=== PATIENT | male | born 1955 | race African-American/Black ===

== ENCOUNTER 2024-01-01 00:59 | Inpatient (IN) | payer MEDICARE, MEDICAID ==
[2024-01-01] VITALS (12 sets, daily range): BP systolic 110–154; BP diastolic 48–81; PULSE 63–88; RESP 16–29; TEMP 36.50292–37.0296; O2SAT 94–98
[~2024-01-01] VITALS: Ht 195.6 cm; Wt 116.6 kg
[2024-01-01] MEDS: IPRATROPIUM/ALBUTEROL 0.5-3(2.5)MG/3ML NEB HHN SCH (00:29)
[~2024-01-01 00:59] MED LIST: ALLO100T PO; AMLO5TAB4 PO; ASPI-1497 PO; ATOR40TA70 PO; CHOL100044 PO; CILO100T3 PO; DICL100G16 TP; FLUT; LISI20TA31 PO; LORA10TA7 PO; METF-414 PO; OLOP2.5D12 EACHEYE; OMEP20CA14 PO
[2024-01-01 01:20] LABS: BG BASE EXCESS -12.7 mmol/L (-2.0-3.0); BG DEOXYHEMOGLOBIN 0.4 % (0.0-5.0); BG FRACTION INSPIRED OXYGEN 100; BG HCO3 ACT 14.5 mmol/L (21.0-28.0); BG METHEMOGLOBIN 0.3 % (0.5-1.5); BG OXYGEN SATURATION 99.6 % (94.0-98.0); BG OXYHEMOGLOBIN 95.3 % (94.0-98.0); BG PCO2 37.6 mmHg (35.0-48.0); BG PH 7.203 (7.350-7.450); BG PO2 231.7 mmHg (83.0-108.0); BG SAMPLE SITE RIGHT RADIAL; BG TOTAL HEMOGLOBIN 13.3 g/dL (13.5-17.5); BG VENT MODE MASK - BIPAP
[2024-01-01] MEDS: METHYLPREDNISOLONE SOD SUCC 125MG/2ML (ACT-O-VIAL) IV STA (01:28)
[2024-01-01] MEDS: IPRATROPIUM BROMIDE (0.02%) 0.5MG/2.5ML NEB HHN STA (01:34)
[2024-01-01] MEDS: ALBUTEROL (0.083%) 2.5MG/3ML NEB HHN STA (01:34)
[2024-01-01 01:45] LABS: BASOPHILS % 1.1 % (0.0-2.0); EOSINOPHILS % 2.2 % (0.0-5.0); HEMATOCRIT. 39.3 % (42.0-52.0); HEMOGLOBIN. 12.7 g/dL (14.0-18.0); LYMPHOCYTES % 30.4 % (20.0-50.0); MEAN CORPUSCULAR HEMOGLOBIN 31.5 pg (28.0-32.0); MEAN CORPUSCULAR HGB CONC 32.3 g/dL (31.0-37.0); MEAN CORPUSCULAR VOLUME 97.6 fL (80.0-94.0); MEAN PLATELET VOLUME 9.2 fl (7.4-10.4); MONOCYTES % 2.1 % (2.0-8.0); NEUTROPHILS % 64.2 % (40.0-76.0); PLATELET 290 x1000/uL (130-400); RED BLOOD CELL COUNT 4.03 mill/uL (4.7-6.1); WHITE BLOOD COUNT 11.6 x1000/uL (4.5-11.0)
[2024-01-01 01:49] LABS: CHLORIDE 107 mEq/L (98-107); POTASSIUM 3.4 mEq/L (3.5-5.1); SODIUM 139 mEq/L (136-145)
[2024-01-01 01:50] LABS: CALCIUM 9.1 mg/dL (8.7-10.4); CARBON DIOXIDE 19 mEq/L (21-32)
[2024-01-01 01:55] LABS: CREATININE 1.7 mg/dL (0.6-1.3); GLUCOSE 233 mg/dL (70-105); UREA NITROGEN BLOOD 13 mg/dL (9-23)
[2024-01-01 02:15] LABS: LACTIC ACID 6.5 mmol/L (0.4-2.0); TROPONIN I HIGH SENSITIVITY 679 ng/L (3.0-53)
[2024-01-01 02:16] LABS: ETHANOL BLOOD < 10 mg/dL (<10)
[2024-01-01 02:51] LABS: CLARITY URINE CLEAR (CLEAR); COLOR URINE YELLOW (YELLOW); GLUCOSE URINE 1+ (NEGATIVE); KETONES URINE NEGATIVE (NEGATIVE); LEUKOCYTE ESTERASE URINE TRACE (NEGATIVE); NITRITE URINE NEGATIVE (NEGATIVE); OCCULT BLOOD URINE 2+ (NEGATIVE); PROTEIN URINE 2+ (NEGATIVE); SPECIFIC GRAVITY URINE 1.013 (1.005-1.030); UROBILINOGEN URINE 0.2 E.U./dL (0.2-1.0)
[2024-01-01 02:52] LABS: PARTIAL THROMBOPLASTIN TIME 25.3 sec (23.4-31.0); PROTHROMBIN TIME 10.9 sec (9.6-11.0)
[2024-01-01 03:10] LABS: *AMPHETAMINES SCREEN URINE NEGATIVE (NEGATIVE)
[2024-01-01 03:11] LABS: *BARBITURATES SCREEN URINE NEGATIVE (NEGATIVE); *BENZODIAZEPINES SCREEN URINE NEGATIVE (NEGATIVE); *COCAINE SCREEN URINE NEGATIVE (NEGATIVE); CANNABINOID URINE SCREEN PRESUMPTIVE POSITIVE (NEGATIVE); ECSTASY MDMA SCREEN URINE NEGATIVE (NEGATIVE); METHADONE URINE SCREEN NEGATIVE (NEGATIVE); OPIATES URINE SCREEN NEGATIVE (NEGATIVE); PHENCYCLIDINE URINE SCREEN NEGATIVE (NEGATIVE)
[2024-01-01] MEDS: SODIUM BICARBONATE 8.4% 50MEQ/50ML SYR IV NR (03:26)
[2024-01-01] MEDS: ENOXAPARIN 100MG/ML SYR SUBCUT NR (03:26)
[2024-01-01] MEDS: ASPIRIN 325MG EC TABLET PO NR (03:26)
[2024-01-01 04:47] LABS: BACTERIA URINE 1+; SQUAMOUS EPITHELIAL CELL URINE 1+ /lpf (RARE/1+); TRICHOMONAS URINE 1+; WBC URINE TNTC /hpf (0-2)
[2024-01-01] MEDS: FUROSEMIDE 40MG/4ML VIAL IVP NR ×2 (13:32→20:36)
[2024-01-01 13:46] LABS: HEPATITIS B SURFACE ANTIGEN NEGATIVE (Negative)
[2024-01-01] MEDS ORDERED: CLONIDINE 0.1MG TABLET PO PRN (14:00)
[2024-01-01 14:08] LABS: HEPATITIS C AB NON REACTIVE (Neg) (Negative)
[2024-01-01] MEDS: PANTOPRAZOLE SODIUM 40 MG/VIAL IV SCH (15:12)
[2024-01-01] MEDS: ASPIRIN 81MG EC TABLET PO SCH (15:12)
[2024-01-01] MEDS: ALLOPURINOL 100 MG TABLET PO SCH (15:13)
[2024-01-01] MEDS: LISINOPRIL 20MG TABLET PO SCH (15:13)
[2024-01-01] MEDS: CHOLECALCIFEROL (D3) 1000 UNIT TABLET PO SCH (15:13)
[2024-01-01] MEDS: AMLODIPINE 5MG TABLET PO SCH (15:14)
[2024-01-01] MEDS: ENOXAPARIN 40MG/0.4ML SYR SUBCUT SCH (15:15)
[2024-01-01] MEDS: DOXYCYCLINE HYCLATE 100MG CAPSULE PO SCH (15:19)
[2024-01-01 18:05] LABS: TROPONIN I HIGH SENSITIVITY 640 ng/L (3.0-53)
[2024-01-01] MEDS: CILOSTAZOL 100MG TABLET PO SCH (20:35)
[2024-01-01] MEDS: ATORVASTATIN CALCIUM 40MG TABLET PO SCH (20:36)
[2024-01-01] MEDS ORDERED: ZOLPIDEM TARTRATE 5MG TABLET PO PRN (21:00)
[2024-01-01] MEDS: CEFTRIAXONE 1GM/50ML 50 ML IV SCH (21:20)
[2024-01-01 21:25] LABS: CREATINE KINASE MB FRACTION 7.1 ng/mL (0.5-3.6)
[2024-01-02] VITALS (31 sets, daily range): BP systolic 105–144; BP diastolic 48–87; PULSE 38–80; RESP 9–21; TEMP 36.61404–36.83628; O2SAT 89–99
[2024-01-02 06:51] LABS: BASOPHILS % 1.2 % (0.0-2.0); EOSINOPHILS % 0.6 % (0.0-5.0); HEMATOCRIT. 30.2 % (42.0-52.0); HEMOGLOBIN. 10.1 g/dL (14.0-18.0); LYMPHOCYTES % 22.6 % (20.0-50.0); MEAN CORPUSCULAR HGB CONC 33.6 g/dL (31.0-37.0); MEAN CORPUSCULAR VOLUME 98.3 fL (80.0-94.0); MEAN PLATELET VOLUME 9.6 fl (7.4-10.4); MONOCYTES % 6.1 % (2.0-8.0); NEUTROPHILS % 69.5 % (40.0-76.0); PLATELET 229 x1000/uL (130-400); RED BLOOD CELL COUNT 3.07 mill/uL (4.7-6.1); WHITE BLOOD COUNT 9.9 x1000/uL (4.5-11.0)
[2024-01-02 07:22] LABS: CHLORIDE 106 mEq/L (98-107); POTASSIUM 3.6 mEq/L (3.5-5.1); SODIUM 139 mEq/L (136-145)
[2024-01-02 07:23] LABS: CALCIUM 8.5 mg/dL (8.7-10.4); CARBON DIOXIDE 26 mEq/L (21-32)
[2024-01-02 07:24] LABS: CREATINE KINASE MB FRACTION 6.2 ng/mL (0.5-3.6)
[2024-01-02 07:27] LABS: TROPONIN I HIGH SENSITIVITY 500 ng/L (3.0-53)
[2024-01-02 07:28] LABS: CREATININE 1.3 mg/dL (0.6-1.3); GLUCOSE 103 mg/dL (70-105); UREA NITROGEN BLOOD 23 mg/dL (9-23)
[2024-01-02 07:30] LABS: CREATINE KINASE 120 IU/L (46-171)
[2024-01-02] MEDS: LORATADINE 10MG TABLET PO SCH (08:16)
[2024-01-02] MEDS ORDERED: IODIXANOL 320MG/ML 100 ML BOTTLE IV ONE ×2 (08:49→13:38)
[2024-01-02] MEDS ORDERED: HEPARIN 1000 UNITS/ML 10ML ONE ×2 (08:49→13:38)
[2024-01-02] MEDS ORDERED: MIDAZOLAM HCL 2 MG/2 ML VIAL ONE ×2 (08:51→13:38)
[2024-01-02] MEDS ORDERED: FENTANYL CITRATE/PF 50MCG/ML 2ML VIAL ONE ×2 (08:51→13:38)
[2024-01-02] MEDS ORDERED: LIDOCAINE HCL 1% 10 MG/ML 10ML VIAL ONE ×2 (08:51→13:37)
[2024-01-02] MEDS ORDERED: VERAPAMIL HCL 2.5 MG/1 ML 2ML VIAL IV ONE ×2 (08:51→13:37)
[2024-01-02] MEDS: KCL 20MEQ/100ML PREMIX 100 ML IV SCH (15:43)
[2024-01-02] MEDS ORDERED: DEXTROSE 50% WATER 50ML SYRINGE IV PRN (15:45)
[2024-01-02] MEDS: BLOOD SUGAR DIAGNOSTIC STRIP TEST SCH (16:46)
[2024-01-02] MEDS: MAGNESIUM 2 G PREMIX 50 ML IV NR ×2 (17:10→20:23)
[2024-01-02] MEDS: INSULIN LISPRO 100 UNITS/ML SUBCUT SCH (17:35)
[2024-01-03] VITALS (55 sets, daily range): BP systolic 87–145; BP diastolic 35–107; PULSE 54–87; RESP 0–26; TEMP 36.6696–37.11408; O2SAT 90–100
[2024-01-03 06:57] LABS: BASOPHILS % 0.8 % (0.0-2.0); EOSINOPHILS % 1.5 % (0.0-5.0); HEMATOCRIT. 31.6 % (42.0-52.0); HEMOGLOBIN. 10.7 g/dL (14.0-18.0); LYMPHOCYTES % 16.7 % (20.0-50.0); MEAN CORPUSCULAR HEMOGLOBIN 32.5 pg (28.0-32.0); MEAN CORPUSCULAR HGB CONC 33.8 g/dL (31.0-37.0); MEAN CORPUSCULAR VOLUME 96.1 fL (80.0-94.0); MEAN PLATELET VOLUME 9.1 fl (7.4-10.4); MONOCYTES % 5.4 % (2.0-8.0); NEUTROPHILS % 75.6 % (40.0-76.0); PLATELET 230 x1000/uL (130-400); RED BLOOD CELL COUNT 3.29 mill/uL (4.7-6.1); RED CELL DISTRIBUTION WIDTH 15.9 % (11.6-14.6)
[2024-01-03 07:13] LABS: CHLORIDE 107 mEq/L (98-107); POTASSIUM 3.9 mEq/L (3.5-5.1); SODIUM 139 mEq/L (136-145)
[2024-01-03 07:14] LABS: CALCIUM 8.6 mg/dL (8.7-10.4); CARBON DIOXIDE 28 mEq/L (21-32)
[2024-01-03 07:19] LABS: CREATININE 1.2 mg/dL (0.6-1.3); GLUCOSE 105 mg/dL (70-105); UREA NITROGEN BLOOD 19 mg/dL (9-23)
[2024-01-03] MEDS ORDERED: CHLORHEXIDINE GLUCONATE 4% EXTERNAL USE TOP SCH (09:00)
[2024-01-03] MEDS ORDERED: FUROSEMIDE 40MG/4ML VIAL IVP NR (10:45)
[2024-01-03] MEDS: MAGNESIUM 2 G PREMIX 50 ML IV NR ×2 (11:09→17:11)
[2024-01-03] MEDS: POTASSIUM CHLORIDE 20MEQ/PACKET PO NR (11:09)
[2024-01-03] MEDS: FUROSEMIDE 20MG/2ML VIAL IVP NR (11:09)
[2024-01-03] MEDS: METRONIDAZOLE 500MG TABLET PO NR (13:46)
[2024-01-03 14:45] LABS: BG BASE EXCESS 0.8 mmol/L (-2.0-3.0); BG CARBOXYHEMOGLOBIN 0.4 % (0.5-1.5); BG DEOXYHEMOGLOBIN 5.4 % (0.0-5.0); BG FRACTION INSPIRED OXYGEN 21; BG METHEMOGLOBIN 0.3 % (0.5-1.5); BG OXYGEN SATURATION 94.6 % (94.0-98.0); BG OXYHEMOGLOBIN 93.9 % (94.0-98.0); BG PCO2 33.3 mmHg (35.0-48.0); BG PH 7.475 (7.350-7.450); BG PO2 71.4 mmHg (83.0-108.0); BG SAMPLE SITE LEFT RADIAL; BG TOTAL HEMOGLOBIN 11.6 g/dL (13.5-17.5); BG VENT MODE ROOM AIR
[2024-01-03 16:17] LABS: CHLORIDE 106 mEq/L (98-107); POTASSIUM 4.2 mEq/L (3.5-5.1)
[2024-01-03 16:18] LABS: CARBON DIOXIDE 25 mEq/L (21-32); SODIUM 138 mEq/L (136-145)
[2024-01-03 16:19] LABS: CALCIUM 8.7 mg/dL (8.7-10.4)
[2024-01-03 16:23] LABS: CREATININE 1.3 mg/dL (0.6-1.3); GLUCOSE 121 mg/dL (70-105)
[2024-01-03 16:24] LABS: UREA NITROGEN BLOOD 18 mg/dL (9-23)
[2024-01-03 16:31] LABS: TROPONIN I HIGH SENSITIVITY 214 ng/L (3.0-53)
[2024-01-04] VITALS (56 sets, daily range): BP systolic 78–163; BP diastolic 41–86; PULSE 58–90; RESP 0–25; TEMP 36.89184–37.2252; O2SAT 92–100
[2024-01-04 06:17] LABS: EOSINOPHILS % 1.5 % (0.0-5.0); HEMATOCRIT. 32.3 % (42.0-52.0); HEMOGLOBIN. 10.7 g/dL (14.0-18.0); LYMPHOCYTES % 21.5 % (20.0-50.0); MEAN CORPUSCULAR HEMOGLOBIN 32.7 pg (28.0-32.0); MEAN CORPUSCULAR HGB CONC 33.2 g/dL (31.0-37.0); MEAN CORPUSCULAR VOLUME 98.3 fL (80.0-94.0); MEAN PLATELET VOLUME 8.9 fl (7.4-10.4); MONOCYTES % 5.8 % (2.0-8.0); NEUTROPHILS % 70.2 % (40.0-76.0); PLATELET 250 x1000/uL (130-400); RED BLOOD CELL COUNT 3.29 mill/uL (4.7-6.1); WHITE BLOOD COUNT 8.7 x1000/uL (4.5-11.0)
[2024-01-04 06:32] LABS: CHLORIDE 104 mEq/L (98-107); SODIUM 137 mEq/L (136-145)
[2024-01-04 06:33] LABS: CALCIUM 8.8 mg/dL (8.7-10.4); CARBON DIOXIDE 27 mEq/L (21-32)
[2024-01-04 06:38] LABS: CREATININE 1.4 mg/dL (0.6-1.3); GLUCOSE 124 mg/dL (70-105); UREA NITROGEN BLOOD 21 mg/dL (9-23)
[2024-01-04 08:45] LABS: CLARITY URINE CLEAR (CLEAR); COLOR URINE YELLOW (YELLOW); GLUCOSE URINE NEGATIVE (NEGATIVE); KETONES URINE NEGATIVE (NEGATIVE); LEUKOCYTE ESTERASE URINE 1+ (NEGATIVE); NITRITE URINE NEGATIVE (NEGATIVE); OCCULT BLOOD URINE NEGATIVE (NEGATIVE); PH URINE 6.5 (4.5-8.0); PROTEIN URINE NEGATIVE (NEGATIVE); SPECIFIC GRAVITY URINE 1.016 (1.005-1.030); UROBILINOGEN URINE 0.2 E.U./dL (0.2-1.0)
[2024-01-04 09:19] LABS: SQUAMOUS EPITHELIAL CELL URINE 1+ /lpf (RARE/1+)
[2024-01-04 09:20] LABS: BACTERIA URINE TRACE; RBC URINE NONE SEEN /hpf (0-2)
[2024-01-04] MEDS: SODIUM CHLORIDE 0.9% 250 ML IV ONE (10:00)
[2024-01-05] VITALS (81 sets, daily range): BP systolic 83–150; BP diastolic 40–97; PULSE 38–97; RESP 7–26; TEMP 36.78072–37.05852; O2SAT 92–100
[2024-01-05 09:58] LABS: CHLORIDE 104 mEq/L (98-107); POTASSIUM 4.5 mEq/L (3.5-5.1); SODIUM 137 mEq/L (136-145)
[2024-01-05 09:59] LABS: BASOPHILS % 0.8 % (0.0-2.0); EOSINOPHILS % 2.7 % (0.0-5.0); HEMATOCRIT. 33.1 % (42.0-52.0); HEMOGLOBIN. 11.1 g/dL (14.0-18.0); LYMPHOCYTES % 20.6 % (20.0-50.0); MEAN CORPUSCULAR HEMOGLOBIN 32.7 pg (28.0-32.0); MEAN CORPUSCULAR HGB CONC 33.7 g/dL (31.0-37.0); MEAN CORPUSCULAR VOLUME 97.2 fL (80.0-94.0); MEAN PLATELET VOLUME 9.2 fl (7.4-10.4); MONOCYTES % 6.5 % (2.0-8.0); NEUTROPHILS % 69.4 % (40.0-76.0); PLATELET 259 x1000/uL (130-400); RED BLOOD CELL COUNT 3.41 mill/uL (4.7-6.1); WHITE BLOOD COUNT 6.6 x1000/uL (4.5-11.0)
[2024-01-05 09:59] LABS: CALCIUM 8.9 mg/dL (8.7-10.4); CARBON DIOXIDE 29 mEq/L (21-32)
[2024-01-05 10:04] LABS: CREATININE 1.3 mg/dL (0.6-1.3); GLUCOSE 108 mg/dL (70-105); UREA NITROGEN BLOOD 17 mg/dL (9-23)
[2024-01-05] MEDS: MAGNESIUM 2 G PREMIX 50 ML IV NR (10:42)
[2024-01-05] MEDS: ATROPINE SULFATE 1MG/10ML SYR IV PRN (12:35)
[2024-01-05] MEDS ORDERED: POLYVINYL ALCOHOL OPHTH DROPS 15ML BOTHEYE PRN (17:00)
[2024-01-06] VITALS (56 sets, daily range): BP systolic 95–156; BP diastolic 41–85; PULSE 42–75; RESP 10–22; TEMP 36.3918–36.83628; O2SAT 92–100
[2024-01-06 06:34] LABS: CHLORIDE 106 mEq/L (98-107); POTASSIUM 5.4 mEq/L (3.5-5.1); SODIUM 140 mEq/L (136-145)
[2024-01-06 06:35] LABS: CALCIUM 9.5 mg/dL (8.7-10.4); CARBON DIOXIDE 29 mEq/L (21-32)
[2024-01-06 06:40] LABS: CREATININE 1.4 mg/dL (0.6-1.3); GLUCOSE 112 mg/dL (70-105); UREA NITROGEN BLOOD 23 mg/dL (9-23)
[2024-01-06 08:07] LABS: EOSINOPHILS % 3.9 % (0.0-5.0); HEMATOCRIT. 33.5 % (42.0-52.0); HEMOGLOBIN. 11.2 g/dL (14.0-18.0); LYMPHOCYTES % 23.3 % (20.0-50.0); MEAN CORPUSCULAR HEMOGLOBIN 33.1 pg (28.0-32.0); MEAN CORPUSCULAR HGB CONC 33.6 g/dL (31.0-37.0); MEAN CORPUSCULAR VOLUME 98.4 fL (80.0-94.0); MEAN PLATELET VOLUME 9.4 fl (7.4-10.4); NEUTROPHILS % 64.8 % (40.0-76.0); PLATELET 256 x1000/uL (130-400); RED CELL DISTRIBUTION WIDTH 16.1 % (11.6-14.6); WHITE BLOOD COUNT 7.5 x1000/uL (4.5-11.0)
[2024-01-06 10:44] LABS: CARBON DIOXIDE 29 mEq/L (21-32); CHLORIDE 102 mEq/L (98-107); POTASSIUM 4.6 mEq/L (3.5-5.1); SODIUM 136 mEq/L (136-145)
[2024-01-06 10:45] LABS: CALCIUM 9.2 mg/dL (8.7-10.4)
[2024-01-06 10:50] LABS: CREATININE 1.3 mg/dL (0.6-1.3); GLUCOSE 105 mg/dL (70-105); UREA NITROGEN BLOOD 20 mg/dL (9-23)
[2024-01-06] MEDS: MAGNESIUM 2 G PREMIX 50 ML IV SCH (11:01)
[2024-01-06] MEDS: FUROSEMIDE 20MG/2ML VIAL IVP SCH (11:01)
[2024-01-06] MEDS: SODIUM CHLORIDE 0.9% 250 ML IV NR (11:34)
[2024-01-06] MEDS: CHLORHEXIDINE GLUCONATE 4% EXTERNAL USE TOP SCH (21:20)
[2024-01-06 22:28] LABS: CHLORIDE 102 mEq/L (98-107); POTASSIUM 4.6 mEq/L (3.5-5.1); SODIUM 135 mEq/L (136-145)
[2024-01-06 22:29] LABS: CARBON DIOXIDE 27 mEq/L (21-32)
[2024-01-06 22:30] LABS: CALCIUM 8.7 mg/dL (8.7-10.4)
[2024-01-06 22:35] LABS: CREATININE 1.4 mg/dL (0.6-1.3); GLUCOSE 117 mg/dL (70-105); UREA NITROGEN BLOOD 22 mg/dL (9-23)
[2024-01-06] MEDS: DEXT 5%/0.45% NACL 1000ML 1,000 ML IV SCH (23:02)
[2024-01-07] VITALS (56 sets, daily range): BP systolic 86–154; BP diastolic 38–80; PULSE 35–108; RESP 7–24; TEMP 35.94732–37.05852; O2SAT 89–100
[2024-01-07] MEDS: CEFAZOLIN 2GM/100ML 100 ML IV NR (04:47)
[2024-01-07] MEDS ORDERED: PAPAVERINE HCL 180MG in SODIUM CHLORIDE 0.9% 24ML IV PRN (05:00)
[2024-01-07] MEDS ORDERED: EPINEPHRINE 5 MG in DEXT 5% WATER 250 ML IV PRN (05:00)
[2024-01-07] MEDS ORDERED: NICARDIPINE 40MG/200ML PREMIX 200 ML IV PRN (05:00)
[2024-01-07] MEDS ORDERED: DOPAMINE 400MG/250ML PREMIX 250 ML IV PRN ×3 (05:00→22:30)
[2024-01-07] MEDS ORDERED: AMINOCAPROIC ACID 5,000 MG in SODIUM CHLORIDE 0.9% 250 ML IV PRN (05:00)
[2024-01-07] MEDS ORDERED: DEL NIDO CARDIOPLEGIA 1,000 ML (PREMIX) IV NR ×2 (05:00)
[2024-01-07] MEDS ORDERED: NOREPINEPHRINE 8MG/250ML PMX 250 ML IV PRN ×2 (05:00→22:30)
[2024-01-07] MEDS ORDERED: DOBUTAMINE 250 MG/250 ML PREMIX IV PRN (05:00)
[2024-01-07] MEDS ORDERED: LR with VERAPAMIL, NTG, HEPARIN, SODIUM BICARBONATE (Soln) IV SCH ×2 (05:00→08:30)
[2024-01-07] MEDS ORDERED: INSULIN REGULAR 100 U/100 ML PREMIX IV PRN (05:00)
[2024-01-07 05:25] LABS: CHLORIDE 103 mEq/L (98-107); POTASSIUM 4.6 mEq/L (3.5-5.1); SODIUM 136 mEq/L (136-145)
[2024-01-07 05:26] LABS: CALCIUM 9.2 mg/dL (8.7-10.4); CARBON DIOXIDE 28 mEq/L (21-32)
[2024-01-07 05:30] LABS: PARTIAL THROMBOPLASTIN TIME 25.1 sec (23.4-31.0); PROTHROMBIN TIME 10.9 sec (9.6-11.0)
[2024-01-07 05:31] LABS: CREATININE 1.4 mg/dL (0.6-1.3); GLUCOSE 112 mg/dL (70-105)
[2024-01-07] MEDS ORDERED: POLYMYXIN B SULFATE 500000 UNITS/VIAL ONE (05:31)
[2024-01-07 05:32] LABS: UREA NITROGEN BLOOD 22 mg/dL (9-23)
[2024-01-07] MEDS ORDERED: PHENYLEPHRINE 50MG/250ML PMX 250 ML IV ONE (05:32)
[2024-01-07] MEDS ORDERED: THROMBIN (BOVINE) 5000 UNITS/VIAL TOP ONE ×3 (05:32→18:46)
[2024-01-07] MEDS ORDERED: SKIN ADHESIVE 0.7 GM EA TOP ONE (05:32)
[2024-01-07 05:37] LABS: BASOPHILS % 0.9 % (0.0-2.0); EOSINOPHILS % 4.4 % (0.0-5.0); HEMATOCRIT. 33.3 % (42.0-52.0); HEMOGLOBIN. 11.4 g/dL (14.0-18.0); LYMPHOCYTES % 26.4 % (20.0-50.0); MEAN CORPUSCULAR HEMOGLOBIN 33.4 pg (28.0-32.0); MEAN CORPUSCULAR HGB CONC 34.2 g/dL (31.0-37.0); MEAN CORPUSCULAR VOLUME 97.8 fL (80.0-94.0); MEAN PLATELET VOLUME 8.9 fl (7.4-10.4); MONOCYTES % 7.1 % (2.0-8.0); NEUTROPHILS % 61.2 % (40.0-76.0); PLATELET 258 x1000/uL (130-400); RED BLOOD CELL COUNT 3.41 mill/uL (4.7-6.1); RED CELL DISTRIBUTION WIDTH 15.7 % (11.6-14.6); WHITE BLOOD COUNT 6.1 x1000/uL (4.5-11.0)
[2024-01-07] MEDS ORDERED: MILRINONE 20MG-DEXT 5% PREMIX 100 ML IV ONE (05:49)
[2024-01-07] MEDS ORDERED: NITROGLYCERIN 50MG PREMIX 250 ML IV ONE (05:49)
[2024-01-07] MEDS ORDERED: SEVOFLURANE 250 ML LIQUID INH ONE (05:49)
[2024-01-07] MEDS ORDERED: HEPARIN 1000 UNITS/ML 10ML ONE ×2 (05:49→13:15)
[2024-01-07] MEDS ORDERED: AMINOCAPROIC ACID 5,000 MG in SODIUM CHLORIDE 0.9% 250 ML IV NR (06:15)
[2024-01-07] MEDS: CHLORHEXIDINE GLUCONATE 4% EXTERNAL USE TOP SCH (09:12)
[2024-01-07] MEDS ORDERED: LIDOCAINE HCL 1% 10 MG/ML 10ML VIAL ONE ×2 (09:12→09:13)
[2024-01-07] MEDS ORDERED: ROCURONIUM BROMIDE 10MG/ML VIAL 5ML IV ONE ×6 (09:14→19:57)
[2024-01-07] MEDS ORDERED: PROPOFOL 200MG/20ML VIAL IV ONE ×2 (09:15→11:40)
[2024-01-07] MEDS ORDERED: EPINEPHRINE 0.1MG/ML (1:10,000) 10ML SYR ONE (09:15)
[2024-01-07] MEDS ORDERED: CALCIUM CHLORIDE 1GM/10ML SYR IV ONE (09:47)
[2024-01-07] MEDS ORDERED: PHENYLEPHRINE HCL 10MG/ML 1ML IV ONE (09:48)
[2024-01-07] MEDS ORDERED: ALBUMIN HUMAN 25GM/100ML (25%) IV ONE ×2 (10:00→16:53)
[2024-01-07] MEDS ORDERED: MIDAZOLAM HCL 2 MG/2 ML VIAL ONE (10:29)
[2024-01-07] MEDS ORDERED: FENTANYL CITRATE/PF 50MCG/ML 5ML VIAL ONE ×2 (10:29→11:11)
[2024-01-07] MEDS ORDERED: FENTANYL CITRATE/PF 50MCG/ML 2ML VIAL ONE ×4 (11:42→18:57)
[2024-01-07] MEDS ORDERED: METOCLOPRAMIDE HCL 10MG/2ML VIAL ONE (12:50)
[2024-01-07] MEDS ORDERED: AMINOCAPROIC ACID 250 MG/ML 20ML VIAL ONE (12:50)
[2024-01-07] MEDS ORDERED: SODIUM BICARBONATE 8.4% 50MEQ/50ML SYR IV ONE (14:48)
[2024-01-07] MEDS ORDERED: PROTAMINE SULFATE 10MG/ML VIAL 25ML IV ONE (16:15)
[2024-01-07] MEDS ORDERED: CEFAZOLIN SODIUM 1000MG/VIAL ONE ×3 (16:22→19:38)
[2024-01-07] MEDS ORDERED: MAGNESIUM 1 G PREMIX 100 ML IV PRN (16:45)
[2024-01-07] MEDS ORDERED: MAGNESIUM SULFATE 3 GM in DEXT 5% WATER 100 ML IV PRN (16:45)
[2024-01-07] MEDS ORDERED: DEXTROSE 50% WATER 50ML SYRINGE IV PRN ×3 (16:45→22:15)
[2024-01-07] MEDS ORDERED: ALBUMIN HUMAN 12.5G/250ML (5%) IV ONE (18:19)
[2024-01-07] MEDS ORDERED: PROPOFOL 10MG/ML 100ML 100 ML IV ONE (18:49)
[2024-01-07] MEDS: BLOOD SUGAR DIAGNOSTIC STRIP TEST SCH ×2 (19:00→22:21)
[2024-01-07] MEDS ORDERED: ONDANSETRON HCL 4MG/2ML INJ ONE (19:03)
[2024-01-07 19:28] LABS: HEMATOCRIT. 23.5 % (42.0-52.0); HEMOGLOBIN. 7.9 g/dL (14.0-18.0); MEAN CORPUSCULAR HEMOGLOBIN 31.4 pg (28.0-32.0); MEAN CORPUSCULAR HGB CONC 33.4 g/dL (31.0-37.0); MEAN CORPUSCULAR VOLUME 94.1 fL (80.0-94.0); MEAN PLATELET VOLUME 8.1 fl (7.4-10.4); PLATELET 163 x1000/uL (130-400); RED CELL DISTRIBUTION WIDTH 15.8 % (11.6-14.6); WHITE BLOOD COUNT 12.4 x1000/uL (4.5-11.0)
[2024-01-07 19:33] LABS: DIFFERENTIAL COMMENT 1
[2024-01-07 19:34] LABS: CHLORIDE 105 mEq/L (98-107); POTASSIUM 5.4 mEq/L (3.5-5.1); SODIUM 140 mEq/L (136-145)
[2024-01-07 19:35] LABS: CALCIUM 8.7 mg/dL (8.7-10.4); CARBON DIOXIDE 27 mEq/L (21-32)
[2024-01-07 19:41] LABS: CREATININE 1.6 mg/dL (0.6-1.3); GLUCOSE 146 mg/dL (70-105); UREA NITROGEN BLOOD 20 mg/dL (9-23)
[2024-01-07 19:42] LABS: ALANINE AMINOTRANSFERASE 15 IU/L (10-49); ALBUMIN 3.7 g/dL (3.2-4.8); ASPARTATE AMINOTRANSFERASE 33 IU/L (<34)
[2024-01-07 19:43] LABS: BILIRUBIN TOTAL 0.8 mg/dL (0.1-1.0); PHOSPHORUS 5.1 mg/dL (2.5-4.9); PROTEIN TOTAL 5.5 g/dL (6.0-8.3)
[2024-01-07 19:44] LABS: INR 1.1; PARTIAL THROMBOPLASTIN TIME 25.1 sec (23.4-31.0)
[2024-01-07 19:46] LABS: PLATELET ESTIMATE NORMAL
[2024-01-07] MEDS: MAGNESIUM 2 G PREMIX 50 ML IV PRN (20:36)
[2024-01-07 20:39] LABS: BG BASE EXCESS 0.6 mmol/L (-2.0-3.0); BG CARBOXYHEMOGLOBIN 0.5 % (0.5-1.5); BG DEOXYHEMOGLOBIN 1.2 % (0.0-5.0); BG FRACTION INSPIRED OXYGEN 100; BG METHEMOGLOBIN 0.1 % (0.5-1.5); BG OXYGEN SATURATION 98.8 % (94.0-98.0); BG OXYHEMOGLOBIN 98.2 % (94.0-98.0); BG PCO2 45.3 mmHg (35.0-48.0); BG PEEP (cmH2O) 0 cmH2O; BG PH 7.377 (7.350-7.450); BG PO2 149.6 mmHg (83.0-108.0); BG SAMPLE SITE RIGHT FEMORAL; BG TOTAL HEMOGLOBIN 11.5 g/dL (13.5-17.5); BG VENT MODE VENT - AC
[2024-01-07] MEDS ORDERED: ONDANSETRON HCL 4MG/2ML INJ IV PRN (20:45)
[2024-01-07] MEDS ORDERED: SODIUM CHLORIDE 0.9% 500 ML IV PRN (21:00)
[2024-01-07 21:56] LABS: BG BASE EXCESS 2.8 mmol/L (-2.0-3.0); BG CARBOXYHEMOGLOBIN 0.1 % (0.5-1.5); BG DEOXYHEMOGLOBIN 5.9 % (0.0-5.0); BG FRACTION INSPIRED OXYGEN 70; BG HCO3 ACT 28.4 mmol/L (21.0-28.0); BG METHEMOGLOBIN 0.1 % (0.5-1.5); BG OXYGEN SATURATION 94.1 % (94.0-98.0); BG OXYHEMOGLOBIN 93.9 % (94.0-98.0); BG PCO2 48.8 mmHg (35.0-48.0); BG PH 7.383 (7.350-7.450); BG PO2 75.5 mmHg (83.0-108.0); BG SAMPLE SITE RIGHT FEMORAL; BG TOTAL HEMOGLOBIN 10.3 g/dL (13.5-17.5); BG VENT MODE VENT - AC
[2024-01-07] MEDS ORDERED: INSULIN REGULAR 100U/100ML PMX 100 ML IV SCH (22:00)
[2024-01-07] MEDS: IPRATROPIUM/ALBUTEROL 0.5-3(2.5)MG/3ML NEB HHN SCH (22:12)
[2024-01-07] MEDS: PROPOFOL 10MG/ML 100ML 100 ML IV PRN (22:21)
[2024-01-07] MEDS: CEFAZOLIN 2GM/100ML 100 ML IV SCH (22:21)
[2024-01-07] MEDS ORDERED: EPINEPHRINE 5 MG in SODIUM CHLORIDE 0.9% 245 ML IV PRN (22:30)
[2024-01-07 23:10] LABS: BG BASE EXCESS 4.3 mmol/L (-2.0-3.0); BG CARBOXYHEMOGLOBIN 0.7 % (0.5-1.5); BG DEOXYHEMOGLOBIN 4.8 % (0.0-5.0); BG FRACTION INSPIRED OXYGEN 50; BG HCO3 ACT 29.6 mmol/L (21.0-28.0); BG METHEMOGLOBIN 0.1 % (0.5-1.5); BG OXYGEN SATURATION 95.2 % (94.0-98.0); BG OXYHEMOGLOBIN 94.4 % (94.0-98.0); BG PCO2 47.1 mmHg (35.0-48.0); BG PH 7.416 (7.350-7.450); BG SAMPLE SITE RIGHT FEMORAL; BG TOTAL HEMOGLOBIN 12.3 g/dL (13.5-17.5); BG VENT MODE VENT - AC
[2024-01-07] MEDS: ALBUMIN HUMAN 25GM/100ML (25%) IV PRN (23:17)
[2024-01-07 23:20] LABS: BASOPHILS % 0.1 % (0.0-2.0); EOSINOPHILS % 0.1 % (0.0-5.0); HEMATOCRIT. 30.3 % (42.0-52.0); HEMOGLOBIN. 10.3 g/dL (14.0-18.0); LYMPHOCYTES % 4.1 % (20.0-50.0); MEAN CORPUSCULAR HEMOGLOBIN 30.6 pg (28.0-32.0); MEAN CORPUSCULAR HGB CONC 33.8 g/dL (31.0-37.0); MEAN CORPUSCULAR VOLUME 90.5 fL (80.0-94.0); MEAN PLATELET VOLUME 8.1 fl (7.4-10.4); NEUTROPHILS % 88.7 % (40.0-76.0); PLATELET 193 x1000/uL (130-400); RED BLOOD CELL COUNT 3.35 mill/uL (4.7-6.1); RED CELL DISTRIBUTION WIDTH 18.1 % (11.6-14.6); WHITE BLOOD COUNT 11.6 x1000/uL (4.5-11.0)
[2024-01-07 23:23] LABS: CHLORIDE 101 mEq/L (98-107); POTASSIUM 4.4 mEq/L (3.5-5.1); SODIUM 139 mEq/L (136-145)
[2024-01-07 23:24] LABS: CALCIUM 9.9 mg/dL (8.7-10.4); CARBON DIOXIDE 30 mEq/L (21-32)
[2024-01-07 23:29] LABS: CREATININE 1.8 mg/dL (0.6-1.3); GLUCOSE 168 mg/dL (70-105); UREA NITROGEN BLOOD 24 mg/dL (9-23)
[2024-01-07 23:30] LABS: DIFFERENTIAL COMMENT 1
[2024-01-07] MEDS: INSULIN REGULAR 100U/100ML PMX 100 ML IV PRN (23:34)
[2024-01-08] VITALS (106 sets, daily range): BP systolic 78–154; BP diastolic 45–84; PULSE 79–126; RESP 0–32; TEMP 36.6696–37.61412; O2SAT 89–100
[2024-01-08] MEDS ORDERED: IPRATROPIUM/ALBUTEROL 0.5-3(2.5)MG/3ML NEB HHN SCH
[2024-01-08 03:01] LABS: HEMATOCRIT. 26.7 % (42.0-52.0); HEMOGLOBIN. 9.3 g/dL (14.0-18.0); MEAN CORPUSCULAR HEMOGLOBIN 31.4 pg (28.0-32.0); MEAN CORPUSCULAR HGB CONC 34.6 g/dL (31.0-37.0); MEAN CORPUSCULAR VOLUME 90.7 fL (80.0-94.0); MEAN PLATELET VOLUME 8.1 fl (7.4-10.4); PLATELET 181 x1000/uL (130-400); RED BLOOD CELL COUNT 2.95 mill/uL (4.7-6.1); RED CELL DISTRIBUTION WIDTH 18.4 % (11.6-14.6); WHITE BLOOD COUNT 10.6 x1000/uL (4.5-11.0)
[2024-01-08 03:07] LABS: CHLORIDE 104 mEq/L (98-107); POTASSIUM 4.3 mEq/L (3.5-5.1); SODIUM 143 mEq/L (136-145)
[2024-01-08] MEDS: PHYTONADIONE 10 MG in DEXTROSE 5% WATER 49 ML IV NR (03:07)
[2024-01-08 03:08] LABS: CARBON DIOXIDE 31 mEq/L (21-32); DIFFERENTIAL COMMENT 1
[2024-01-08 03:13] LABS: CREATININE 1.9 mg/dL (0.6-1.3); GLUCOSE 88 mg/dL (70-105); TRIGLYCERIDE 70 mg/dL (0-150); UREA NITROGEN BLOOD 24 mg/dL (9-23)
[2024-01-08 03:15] LABS: PHOSPHORUS 4.9 mg/dL (2.5-4.9)
[2024-01-08 04:01] LABS: PLATELET ESTIMATE NORMAL
[2024-01-08 05:48] LABS: BG BASE EXCESS 5.6 mmol/L (-2.0-3.0); BG CARBOXYHEMOGLOBIN 1.1 % (0.5-1.5); BG FRACTION INSPIRED OXYGEN 30; BG HCO3 ACT 30.7 mmol/L (21.0-28.0); BG METHEMOGLOBIN 0.3 % (0.5-1.5); BG OXYGEN SATURATION 93.9 % (94.0-98.0); BG OXYHEMOGLOBIN 92.6 % (94.0-98.0); BG PCO2 46.6 mmHg (35.0-48.0); BG PH 7.436 (7.350-7.450); BG PO2 69.3 mmHg (83.0-108.0); BG SAMPLE SITE ALINE; BG TOTAL HEMOGLOBIN 11.4 g/dL (13.5-17.5); BG VENT MODE VENT - AC
[2024-01-08 07:43] LABS: BG CARBOXYHEMOGLOBIN 0.5 % (0.5-1.5); BG DEOXYHEMOGLOBIN 4.6 % (0.0-5.0); BG FRACTION INSPIRED OXYGEN 40; BG HCO3 ACT 25.7 mmol/L (21.0-28.0); BG METHEMOGLOBIN 0.3 % (0.5-1.5); BG OXYGEN SATURATION 95.4 % (94.0-98.0); BG OXYHEMOGLOBIN 94.6 % (94.0-98.0); BG PCO2 36.6 mmHg (35.0-48.0); BG PH 7.465 (7.350-7.450); BG PO2 76.2 mmHg (83.0-108.0); BG SAMPLE SITE ALINE; BG TOTAL HEMOGLOBIN 9.4 g/dL (13.5-17.5); BG VENT MODE VENT - CPAP
[2024-01-08] MEDS ORDERED: RACEPINEPHRINE 2.25% 0.5ML NEB VIAL ONE (08:26)
[2024-01-08] MEDS: ACETAMINOPHEN 1000MG/100ML 100 ML IV NR (08:43)
[2024-01-08] MEDS ORDERED: RACEPINEPHRINE 2.25% 0.5ML NEB VIAL HHN PRN (09:00)
[2024-01-08 09:01] LABS: CHLORIDE 104 mEq/L (98-107); HEMATOCRIT. 28.1 % (42.0-52.0); HEMOGLOBIN. 9.2 g/dL (14.0-18.0); MEAN CORPUSCULAR HEMOGLOBIN 30.1 pg (28.0-32.0); MEAN CORPUSCULAR HGB CONC 32.9 g/dL (31.0-37.0); MEAN CORPUSCULAR VOLUME 91.5 fL (80.0-94.0); MEAN PLATELET VOLUME 8.6 fl (7.4-10.4); PLATELET 168 x1000/uL (130-400); POTASSIUM 4.6 mEq/L (3.5-5.1); RED BLOOD CELL COUNT 3.07 mill/uL (4.7-6.1); RED CELL DISTRIBUTION WIDTH 18.6 % (11.6-14.6); SODIUM 142 mEq/L (136-145); WHITE BLOOD COUNT 13.7 x1000/uL (4.5-11.0)
[2024-01-08 09:02] LABS: CALCIUM 9.7 mg/dL (8.7-10.4); CARBON DIOXIDE 29 mEq/L (21-32)
[2024-01-08 09:06] LABS: BG BASE EXCESS 1.1 mmol/L (-2.0-3.0); BG CARBOXYHEMOGLOBIN 0.3 % (0.5-1.5); BG FRACTION INSPIRED OXYGEN 60; BG HCO3 ACT 25.4 mmol/L (21.0-28.0); BG METHEMOGLOBIN 0.3 % (0.5-1.5); BG OXYHEMOGLOBIN 95.4 % (94.0-98.0); BG PH 7.432 (7.350-7.450); BG PO2 85.8 mmHg (83.0-108.0); BG SAMPLE SITE ALINE; BG TOTAL HEMOGLOBIN 9.7 g/dL (13.5-17.5); BG VENT MODE MASK - SIMPLE
[2024-01-08 09:07] LABS: CREATININE 2.1 mg/dL (0.6-1.3); GLUCOSE 118 mg/dL (70-105); UREA NITROGEN BLOOD 26 mg/dL (9-23)
[2024-01-08 09:09] LABS: ALANINE AMINOTRANSFERASE 12 IU/L (10-49); ALBUMIN 4.6 g/dL (3.2-4.8); ASPARTATE AMINOTRANSFERASE 43 IU/L (<34); BILIRUBIN TOTAL 0.5 mg/dL (0.1-1.0); PROTEIN TOTAL 6.7 g/dL (6.0-8.3)
[2024-01-08 09:13] LABS: DIFFERENTIAL COMMENT 1
[2024-01-08] MEDS: NITROGLYCERIN 50MG PREMIX 250 ML IV PRN (09:16)
[2024-01-08] MEDS: RACEPINEPHRINE 2.25% 0.5ML NEB VIAL HHN NR (09:26)
[2024-01-08] MEDS: BACITRACIN 14GM TUBE TOP SCH (09:42)
[2024-01-08] MEDS: SODIUM CHLORIDE 0.9% 250 ML IV ONE ×3 (09:44→12:21)
[2024-01-08] MEDS: MILRINONE 20MG-DEXT 5% PREMIX 100 ML IV PRN (10:15)
[2024-01-08] MEDS: METOPROLOL TARTRATE 5MG/5ML VIAL IV NR (10:19)
[2024-01-08] MEDS: ALBUMIN HUMAN 25GM/100ML (25%) IV NR (10:28)
[2024-01-08] MEDS ORDERED: PHYTONADIONE 10MG/ML INJ IM ONE (12:30)
[2024-01-08 12:37] LABS: INR 1.1; PARTIAL THROMBOPLASTIN TIME 28.6 sec (23.4-31.0); PROTHROMBIN TIME 11.9 sec (9.6-11.0)
[2024-01-08] MEDS ORDERED: PHYTONADIONE 10MG/ML INJ IV ONE (13:15)
[2024-01-08] MEDS: PHYTONADIONE 10 MG in DEXTROSE 5% WATER 50 ML IV NR (14:38)
[2024-01-08 15:24] LABS: HEMOGLOBIN. 9.7 g/dL (14.0-18.0); MEAN CORPUSCULAR HEMOGLOBIN 30.8 pg (28.0-32.0); MEAN CORPUSCULAR HGB CONC 33.4 g/dL (31.0-37.0); MEAN CORPUSCULAR VOLUME 92.2 fL (80.0-94.0); MEAN PLATELET VOLUME 8.8 fl (7.4-10.4); PLATELET 143 x1000/uL (130-400); RED BLOOD CELL COUNT 3.14 mill/uL (4.7-6.1); RED CELL DISTRIBUTION WIDTH 19.2 % (11.6-14.6); WHITE BLOOD COUNT 13.4 x1000/uL (4.5-11.0)
[2024-01-08 15:26] LABS: DIFFERENTIAL COMMENT 1
[2024-01-08 15:45] LABS: CARBON DIOXIDE 29 mEq/L (21-32); CHLORIDE 107 mEq/L (98-107); POTASSIUM 4.3 mEq/L (3.5-5.1); SODIUM 144 mEq/L (136-145)
[2024-01-08 15:46] LABS: CALCIUM 9.3 mg/dL (8.7-10.4)
[2024-01-08 15:51] LABS: CREATININE 2.1 mg/dL (0.6-1.3); GLUCOSE 103 mg/dL (70-105); UREA NITROGEN BLOOD 26 mg/dL (9-23)
[2024-01-08 16:09] LABS: ANISOCYTOSIS 1+; PLATELET ESTIMATE NORMAL
[2024-01-08 16:24] LABS: ANISOCYTOSIS 1+; PLATELET ESTIMATE NORMAL
[2024-01-08] MEDS: DEXT 5%/0.45% NACL 1000ML 1,000 ML IV SCH (16:30)
[2024-01-08] MEDS ORDERED: OXYCODONE HCL/ACETAMINOPHEN 5/325MG TABLET PO PRN (18:30)
[2024-01-08] MEDS ORDERED: NALOXONE HCL 0.4MG/ML VIAL IV PRN (18:30)
[2024-01-08] MEDS: OXYCODONE HCL/ACETAMINOPHEN 5/325MG TABLET PO PRN (18:51)
[2024-01-08 21:11] LABS: BASOPHILS % 0.2 % (0.0-2.0); HEMATOCRIT. 26.5 % (42.0-52.0); HEMOGLOBIN. 8.8 g/dL (14.0-18.0); LYMPHOCYTES % 9.6 % (20.0-50.0); MEAN CORPUSCULAR HEMOGLOBIN 30.1 pg (28.0-32.0); MEAN CORPUSCULAR HGB CONC 33.2 g/dL (31.0-37.0); MEAN CORPUSCULAR VOLUME 90.6 fL (80.0-94.0); MEAN PLATELET VOLUME 8.6 fl (7.4-10.4); MONOCYTES % 8.6 % (2.0-8.0); NEUTROPHILS % 81.6 % (40.0-76.0); PLATELET 139 x1000/uL (130-400); RED BLOOD CELL COUNT 2.93 mill/uL (4.7-6.1); RED CELL DISTRIBUTION WIDTH 19.1 % (11.6-14.6); WHITE BLOOD COUNT 14.7 x1000/uL (4.5-11.0)
[2024-01-08 21:18] LABS: CHLORIDE 108 mEq/L (98-107); SODIUM 143 mEq/L (136-145)
[2024-01-08 21:19] LABS: CARBON DIOXIDE 28 mEq/L (21-32)
[2024-01-08 21:24] LABS: CREATININE 1.8 mg/dL (0.6-1.3); GLUCOSE 106 mg/dL (70-105); UREA NITROGEN BLOOD 24 mg/dL (9-23)
[2024-01-08 21:26] LABS: ALANINE AMINOTRANSFERASE 10 IU/L (10-49); ALBUMIN 4.2 g/dL (3.2-4.8); ASPARTATE AMINOTRANSFERASE 42 IU/L (<34); BILIRUBIN TOTAL 0.6 mg/dL (0.1-1.0); PHOSPHORUS 5.5 mg/dL (2.5-4.9); PROTEIN TOTAL 6.2 g/dL (6.0-8.3)
[2024-01-08 23:36] LABS: INR 1.1; PARTIAL THROMBOPLASTIN TIME 30.2 sec (23.4-31.0); PROTHROMBIN TIME 12.1 sec (9.6-11.0)
[2024-01-09] VITALS (102 sets, daily range): BP systolic 91–155; BP diastolic 33–107; PULSE 79–142; RESP 5–29; TEMP 36.50292–37.16964; O2SAT 87–100
[2024-01-09] MEDS: MORPHINE SULFATE 2 MG/ML INJ (NOT FOR IM USE) IV PRN (00:17)
[2024-01-09 04:43] LABS: CHLORIDE 106 mEq/L (98-107); POTASSIUM 3.7 mEq/L (3.5-5.1); SODIUM 141 mEq/L (136-145)
[2024-01-09 04:44] LABS: CARBON DIOXIDE 27 mEq/L (21-32)
[2024-01-09 04:49] LABS: CREATININE 1.5 mg/dL (0.6-1.3); GLUCOSE 106 mg/dL (70-105); UREA NITROGEN BLOOD 24 mg/dL (9-23)
[2024-01-09 04:51] LABS: PHOSPHORUS 5.1 mg/dL (2.5-4.9)
[2024-01-09 04:57] LABS: BASOPHILS % 0.2 % (0.0-2.0); EOSINOPHILS % 0.2 % (0.0-5.0); HEMATOCRIT. 25.3 % (42.0-52.0); HEMOGLOBIN. 8.6 g/dL (14.0-18.0); MEAN CORPUSCULAR HEMOGLOBIN 31.6 pg (28.0-32.0); MEAN CORPUSCULAR VOLUME 92.8 fL (80.0-94.0); MEAN PLATELET VOLUME 9.4 fl (7.4-10.4); MONOCYTES % 8.4 % (2.0-8.0); NEUTROPHILS % 82.2 % (40.0-76.0); PLATELET 127 x1000/uL (130-400); RED BLOOD CELL COUNT 2.73 mill/uL (4.7-6.1); RED CELL DISTRIBUTION WIDTH 18.6 % (11.6-14.6); WHITE BLOOD COUNT 13.8 x1000/uL (4.5-11.0)
[2024-01-09] MEDS: POTASSIUM CHLORIDE 20MEQ TABLET SR PO NR (07:03)
[2024-01-09 08:54] LABS: BASOPHILS % 0.3 % (0.0-2.0); EOSINOPHILS % 0.2 % (0.0-5.0); HEMATOCRIT. 25.8 % (42.0-52.0); HEMOGLOBIN. 8.5 g/dL (14.0-18.0); LYMPHOCYTES % 7.9 % (20.0-50.0); MEAN CORPUSCULAR HEMOGLOBIN 30.5 pg (28.0-32.0); MEAN CORPUSCULAR HGB CONC 32.9 g/dL (31.0-37.0); MEAN CORPUSCULAR VOLUME 92.8 fL (80.0-94.0); MEAN PLATELET VOLUME 8.9 fl (7.4-10.4); MONOCYTES % 8.6 % (2.0-8.0); PLATELET 122 x1000/uL (130-400); RED BLOOD CELL COUNT 2.78 mill/uL (4.7-6.1); RED CELL DISTRIBUTION WIDTH 18.7 % (11.6-14.6); WHITE BLOOD COUNT 13.5 x1000/uL (4.5-11.0)
[2024-01-09 09:14] LABS: CHLORIDE 106 mEq/L (98-107); SODIUM 139 mEq/L (136-145)
[2024-01-09 09:15] LABS: CALCIUM 8.7 mg/dL (8.7-10.4); CARBON DIOXIDE 28 mEq/L (21-32)
[2024-01-09 09:20] LABS: CREATININE 1.4 mg/dL (0.6-1.3); GLUCOSE 107 mg/dL (70-105); UREA NITROGEN BLOOD 22 mg/dL (9-23)
[2024-01-09 09:22] LABS: PHOSPHORUS 4.6 mg/dL (2.5-4.9)
[2024-01-09] MEDS: DOCUSATE SODIUM 100MG CAPSULE PO SCH (16:19)
[2024-01-09] MEDS: INSULIN LISPRO 100 UNITS/ML SUBCUT SCH (18:20)
[2024-01-09] MEDS: BLOOD SUGAR DIAGNOSTIC STRIP TEST SCH (18:21)
[2024-01-09] MEDS: PSYLLIUM SEED PACKET PO NR (18:50)
[2024-01-09 21:55] LABS: BASOPHILS % 0.5 % (0.0-2.0); EOSINOPHILS % 0.3 % (0.0-5.0); HEMOGLOBIN. 9.3 g/dL (14.0-18.0); LYMPHOCYTES % 8.8 % (20.0-50.0); MEAN CORPUSCULAR HEMOGLOBIN 30.3 pg (28.0-32.0); MEAN CORPUSCULAR HGB CONC 33.2 g/dL (31.0-37.0); MEAN CORPUSCULAR VOLUME 91.3 fL (80.0-94.0); MEAN PLATELET VOLUME 8.6 fl (7.4-10.4); MONOCYTES % 7.8 % (2.0-8.0); NEUTROPHILS % 82.6 % (40.0-76.0); PLATELET 127 x1000/uL (130-400); RED BLOOD CELL COUNT 3.07 mill/uL (4.7-6.1); RED CELL DISTRIBUTION WIDTH 18.4 % (11.6-14.6); WHITE BLOOD COUNT 13.3 x1000/uL (4.5-11.0)
[2024-01-09 22:14] LABS: CHLORIDE 103 mEq/L (98-107); POTASSIUM 4.3 mEq/L (3.5-5.1); SODIUM 134 mEq/L (136-145)
[2024-01-09 22:15] LABS: CALCIUM 8.7 mg/dL (8.7-10.4); CARBON DIOXIDE 26 mEq/L (21-32)
[2024-01-09 22:20] LABS: CREATININE 1.3 mg/dL (0.6-1.3); GLUCOSE 174 mg/dL (70-105); UREA NITROGEN BLOOD 19 mg/dL (9-23)
[2024-01-09 22:22] LABS: ALANINE AMINOTRANSFERASE 8 IU/L (10-49); ALBUMIN 4.1 g/dL (3.2-4.8); ASPARTATE AMINOTRANSFERASE 32 IU/L (<34); BILIRUBIN TOTAL 0.7 mg/dL (0.1-1.0); PROTEIN TOTAL 6.5 g/dL (6.0-8.3)
[2024-01-09] MEDS: METOPROLOL TARTRATE 5MG/5ML VIAL IV NR (22:23)
[2024-01-09] MEDS: MAGNESIUM 2 G PREMIX 50 ML IV NR (22:59)
[2024-01-10] VITALS (86 sets, daily range): BP systolic 73–155; BP diastolic 44–138; PULSE 68–140; RESP 6–38; TEMP 36.6696–37.11408; O2SAT 92–100
[2024-01-10 05:17] LABS: CARBON DIOXIDE 28 mEq/L (21-32); CHLORIDE 104 mEq/L (98-107); POTASSIUM 4.3 mEq/L (3.5-5.1); SODIUM 135 mEq/L (136-145)
[2024-01-10 05:18] LABS: CALCIUM 8.7 mg/dL (8.7-10.4)
[2024-01-10 05:22] LABS: CREATININE 1.2 mg/dL (0.6-1.3); GLUCOSE 157 mg/dL (70-105)
[2024-01-10 05:23] LABS: UREA NITROGEN BLOOD 17 mg/dL (9-23)
[2024-01-10] MEDS: METOPROLOL TARTRATE 5MG/5ML VIAL IV NR ×2 (05:49→17:23)
[2024-01-10 07:14] LABS: BASOPHILS % 0.4 % (0.0-2.0); EOSINOPHILS % 0.3 % (0.0-5.0); HEMATOCRIT. 26.4 % (42.0-52.0); HEMOGLOBIN. 8.7 g/dL (14.0-18.0); MEAN CORPUSCULAR HEMOGLOBIN 30.5 pg (28.0-32.0); MEAN CORPUSCULAR HGB CONC 32.7 g/dL (31.0-37.0); MEAN CORPUSCULAR VOLUME 93.2 fL (80.0-94.0); MEAN PLATELET VOLUME 9.9 fl (7.4-10.4); MONOCYTES % 6.9 % (2.0-8.0); NEUTROPHILS % 80.4 % (40.0-76.0); PLATELET 125 x1000/uL (130-400); RED BLOOD CELL COUNT 2.84 mill/uL (4.7-6.1); RED CELL DISTRIBUTION WIDTH 18.3 % (11.6-14.6)
[2024-01-10] MEDS: METOPROLOL TARTRATE 25MG TABLET PO SCH (08:18)
[2024-01-10 10:47] LABS: BASOPHILS % 0.4 % (0.0-2.0); EOSINOPHILS % 0.3 % (0.0-5.0); HEMATOCRIT. 29.1 % (42.0-52.0); HEMOGLOBIN. 9.6 g/dL (14.0-18.0); MEAN CORPUSCULAR HGB CONC 32.8 g/dL (31.0-37.0); MEAN CORPUSCULAR VOLUME 94.4 fL (80.0-94.0); MEAN PLATELET VOLUME 9.3 fl (7.4-10.4); MONOCYTES % 5.9 % (2.0-8.0); NEUTROPHILS % 85.4 % (40.0-76.0); PLATELET 126 x1000/uL (130-400); RED BLOOD CELL COUNT 3.09 mill/uL (4.7-6.1); RED CELL DISTRIBUTION WIDTH 18.5 % (11.6-14.6); WHITE BLOOD COUNT 12.3 x1000/uL (4.5-11.0)
[2024-01-10 11:17] LABS: CHLORIDE 103 mEq/L (98-107); POTASSIUM 4.4 mEq/L (3.5-5.1); SODIUM 133 mEq/L (136-145)
[2024-01-10 11:18] LABS: CALCIUM 8.7 mg/dL (8.7-10.4); CARBON DIOXIDE 24 mEq/L (21-32)
[2024-01-10 11:23] LABS: CREATININE 1.3 mg/dL (0.6-1.3); GLUCOSE 213 mg/dL (70-105); UREA NITROGEN BLOOD 17 mg/dL (9-23)
[2024-01-10 11:25] LABS: PHOSPHORUS 2.7 mg/dL (2.5-4.9)
[2024-01-10 16:12] LABS: CHLORIDE 104 mEq/L (98-107); POTASSIUM 4.3 mEq/L (3.5-5.1); SODIUM 133 mEq/L (136-145)
[2024-01-10 16:13] LABS: CALCIUM 8.6 mg/dL (8.7-10.4); CARBON DIOXIDE 24 mEq/L (21-32)
[2024-01-10 16:18] LABS: CREATININE 1.2 mg/dL (0.6-1.3); GLUCOSE 171 mg/dL (70-105); UREA NITROGEN BLOOD 18 mg/dL (9-23)
[2024-01-10] MEDS: MAGNESIUM 1 G PREMIX 100 ML IV NR (17:19)
[2024-01-10] MEDS: ALBUMIN HUMAN 25GM/100ML (25%) IV NR (19:47)
[2024-01-10] MEDS: AMIODARONE 150MG/100ML 100 ML IV SCH (20:13)
[2024-01-10] MEDS: AMIODARONE HCL 900 MG in DEXT 5% WATER 482 ML IV PRN (20:44)
[2024-01-10] MEDS: ENOXAPARIN 40MG/0.4ML SYR SUBCUT NR (22:51)
[2024-01-11] VITALS (72 sets, daily range): BP systolic 87–159; BP diastolic 45–125; PULSE 70–89; RESP 13–27; TEMP 36.72516–37.33632; O2SAT 89–100
[2024-01-11 04:39] LABS: BASOPHILS % 0.5 % (0.0-2.0); EOSINOPHILS % 0.4 % (0.0-5.0); HEMATOCRIT. 24.4 % (42.0-52.0); HEMOGLOBIN. 8.2 g/dL (14.0-18.0); LYMPHOCYTES % 16.7 % (20.0-50.0); MEAN CORPUSCULAR HEMOGLOBIN 30.8 pg (28.0-32.0); MEAN CORPUSCULAR HGB CONC 33.7 g/dL (31.0-37.0); MEAN CORPUSCULAR VOLUME 91.6 fL (80.0-94.0); MEAN PLATELET VOLUME 8.9 fl (7.4-10.4); MONOCYTES % 7.1 % (2.0-8.0); NEUTROPHILS % 75.3 % (40.0-76.0); PLATELET 131 x1000/uL (130-400); RED BLOOD CELL COUNT 2.66 mill/uL (4.7-6.1); RED CELL DISTRIBUTION WIDTH 17.8 % (11.6-14.6); WHITE BLOOD COUNT 8.8 x1000/uL (4.5-11.0)
[2024-01-11 05:30] LABS: CHLORIDE 104 mEq/L (98-107); POTASSIUM 3.9 mEq/L (3.5-5.1); SODIUM 135 mEq/L (136-145)
[2024-01-11 05:33] LABS: CALCIUM 8.6 mg/dL (8.7-10.4); CARBON DIOXIDE 24 mEq/L (21-32)
[2024-01-11 05:38] LABS: CREATININE 1.3 mg/dL (0.6-1.3); GLUCOSE 128 mg/dL (70-105)
[2024-01-11 05:39] LABS: UREA NITROGEN BLOOD 22 mg/dL (9-23)
[2024-01-11 05:40] LABS: ALANINE AMINOTRANSFERASE 12 IU/L (10-49); ALBUMIN 3.7 g/dL (3.2-4.8); ASPARTATE AMINOTRANSFERASE 33 IU/L (<34)
[2024-01-11 05:41] LABS: BILIRUBIN TOTAL 0.5 mg/dL (0.1-1.0); PHOSPHORUS 2.5 mg/dL (2.5-4.9); PROTEIN TOTAL 6.1 g/dL (6.0-8.3)
[2024-01-11] MEDS: ENOXAPARIN 80MG/0.8ML SYR SUBCUT SCH (08:27)
[2024-01-11] MEDS: POTASSIUM CHLORIDE 10MEQ TABLET SR PO NR (08:52)
[2024-01-11] MEDS: CALCIUM GLUCONATE 1GM PREMIX 50 ML IV NR (08:52)
[2024-01-11] MEDS: AMIODARONE 200MG TABLET PO SCH (20:57)
[2024-01-12] VITALS (54 sets, daily range): BP systolic 89–150; BP diastolic 54–96; PULSE 73–106; RESP 16–42; TEMP 36.61404–37.2252; O2SAT 93–100
[2024-01-12 04:20] LABS: BASOPHILS % 0.5 % (0.0-2.0); HEMOGLOBIN. 8.9 g/dL (14.0-18.0); LYMPHOCYTES % 18.3 % (20.0-50.0); MEAN CORPUSCULAR HEMOGLOBIN 31.6 pg (28.0-32.0); MEAN CORPUSCULAR HGB CONC 34.2 g/dL (31.0-37.0); MEAN CORPUSCULAR VOLUME 92.5 fL (80.0-94.0); MEAN PLATELET VOLUME 8.5 fl (7.4-10.4); MONOCYTES % 7.2 % (2.0-8.0); PLATELET 168 x1000/uL (130-400); RED BLOOD CELL COUNT 2.81 mill/uL (4.7-6.1); RED CELL DISTRIBUTION WIDTH 17.7 % (11.6-14.6); WHITE BLOOD COUNT 8.7 x1000/uL (4.5-11.0)
[2024-01-12 04:25] LABS: CHLORIDE 106 mEq/L (98-107); POTASSIUM 4.9 mEq/L (3.5-5.1); SODIUM 137 mEq/L (136-145)
[2024-01-12 04:26] LABS: CALCIUM 9.1 mg/dL (8.7-10.4); CARBON DIOXIDE 25 mEq/L (21-32)
[2024-01-12 04:31] LABS: CREATININE 1.2 mg/dL (0.6-1.3); GLUCOSE 132 mg/dL (70-105); UREA NITROGEN BLOOD 19 mg/dL (9-23)
[2024-01-12 04:33] LABS: ALANINE AMINOTRANSFERASE 29 IU/L (10-49); ASPARTATE AMINOTRANSFERASE 49 IU/L (<34); BILIRUBIN TOTAL 0.7 mg/dL (0.1-1.0); PHOSPHORUS 2.6 mg/dL (2.5-4.9); PROTEIN TOTAL 6.4 g/dL (6.0-8.3)
[2024-01-12] MEDS: MAGNESIUM 2 G PREMIX 50 ML IV NR (08:11)
[2024-01-12 08:38] LABS: POTASSIUM 4.2 mEq/L (3.5-5.1)
[2024-01-12] MEDS ORDERED: NALOXONE HCL 0.4MG/ML VIAL IV PRN (17:30)
[2024-01-12] MEDS: MAGNESIUM 1 G PREMIX 100 ML IV NR (17:49)
[2024-01-13] VITALS (42 sets, daily range): BP systolic 109–168; BP diastolic 55–155; PULSE 72–123; RESP 12–30; TEMP 36.22512–37.00296; O2SAT 62–99
[2024-01-13 05:33] LABS: CARBON DIOXIDE 21 mEq/L (21-32); CHLORIDE 107 mEq/L (98-107); POTASSIUM 4.4 mEq/L (3.5-5.1); SODIUM 136 mEq/L (136-145)
[2024-01-13 05:35] LABS: CALCIUM 8.7 mg/dL (8.7-10.4)
[2024-01-13 05:39] LABS: CREATININE 1.2 mg/dL (0.6-1.3); GLUCOSE 121 mg/dL (70-105); UREA NITROGEN BLOOD 21 mg/dL (9-23)
[2024-01-13 05:40] LABS: BASOPHILS % 0.9 % (0.0-2.0); EOSINOPHILS % 0.6 % (0.0-5.0); HEMATOCRIT. 24.4 % (42.0-52.0); HEMOGLOBIN. 8.2 g/dL (14.0-18.0); LYMPHOCYTES % 15.1 % (20.0-50.0); MEAN CORPUSCULAR HEMOGLOBIN 31.8 pg (28.0-32.0); MEAN CORPUSCULAR HGB CONC 33.4 g/dL (31.0-37.0); MEAN CORPUSCULAR VOLUME 95.1 fL (80.0-94.0); MEAN PLATELET VOLUME 8.8 fl (7.4-10.4); MONOCYTES % 7.5 % (2.0-8.0); NEUTROPHILS % 75.9 % (40.0-76.0); PLATELET 190 x1000/uL (130-400); RED BLOOD CELL COUNT 2.56 mill/uL (4.7-6.1); RED CELL DISTRIBUTION WIDTH 17.8 % (11.6-14.6); WHITE BLOOD COUNT 8.7 x1000/uL (4.5-11.0)
[2024-01-13] MEDS: MAGNESIUM 2 G PREMIX 50 ML IV NR (08:31)
[2024-01-13] MEDS ORDERED: GENTAMICIN/NS IRRIGATION 500 ML IR NR (12:30)
[2024-01-13] MEDS ORDERED: IODIXANOL 320MG/ML 100 ML BOTTLE IV ONE (13:52)
[2024-01-13] MEDS ORDERED: CEFAZOLIN SODIUM 1000MG/VIAL ONE (13:56)
[2024-01-13] MEDS ORDERED: LIDOCAINE HCL 1% 20ML VIAL ONE (13:59)
[2024-01-13] MEDS ORDERED: FENTANYL CITRATE/PF 50MCG/ML 2ML VIAL ONE (14:12)
[2024-01-13] MEDS ORDERED: MIDAZOLAM HCL 2 MG/2 ML VIAL ONE ×2 (14:12→14:24)
[2024-01-13] MEDS ORDERED: GENTAMICIN SULF 40MG/ML 2ML VIAL ONE (14:46)
[2024-01-13] MEDS: CEFAZOLIN 1000MG PREMIX 50ML IV SCH (18:33)
[2024-01-13] MEDS ORDERED: CEFAZOLIN SODIUM 1000MG/VIAL IV SCH (22:00)
[2024-01-14] VITALS (24 sets, daily range): BP systolic 104–157; BP diastolic 52–102; PULSE 75–116; RESP 16–32; TEMP 36.44736–37.11408; O2SAT 93–98
[2024-01-14 05:49] LABS: BASOPHILS % 0.6 % (0.0-2.0); EOSINOPHILS % 1.3 % (0.0-5.0); HEMATOCRIT. 25.4 % (42.0-52.0); HEMOGLOBIN. 8.4 g/dL (14.0-18.0); LYMPHOCYTES % 18.1 % (20.0-50.0); MEAN CORPUSCULAR HEMOGLOBIN 31.6 pg (28.0-32.0); MEAN CORPUSCULAR HGB CONC 33.1 g/dL (31.0-37.0); MEAN CORPUSCULAR VOLUME 95.4 fL (80.0-94.0); MEAN PLATELET VOLUME 8.5 fl (7.4-10.4); MONOCYTES % 8.2 % (2.0-8.0); NEUTROPHILS % 71.8 % (40.0-76.0); PLATELET 226 x1000/uL (130-400); RED BLOOD CELL COUNT 2.66 mill/uL (4.7-6.1); RED CELL DISTRIBUTION WIDTH 17.6 % (11.6-14.6); WHITE BLOOD COUNT 8.7 x1000/uL (4.5-11.0)
[2024-01-14 05:52] LABS: CALCIUM 8.6 mg/dL (8.7-10.4); CARBON DIOXIDE 23 mEq/L (21-32); CHLORIDE 106 mEq/L (98-107); POTASSIUM 4.8 mEq/L (3.5-5.1); SODIUM 136 mEq/L (136-145)
[2024-01-14 05:58] LABS: CREATININE 1.2 mg/dL (0.6-1.3); GLUCOSE 107 mg/dL (70-105); UREA NITROGEN BLOOD 18 mg/dL (9-23)
[2024-01-14] MEDS: MAGNESIUM 2 G PREMIX 50 ML IV SCH (09:13)
[2024-01-14 10:08] LABS: POTASSIUM 5.1 mEq/L (3.5-5.1)
[2024-01-14] MEDS: POLYETHYLENE GLYCOL 3350 (17GM) 1 DOSE PACK PO NR (10:17)
[2024-01-14 12:19] LABS: POTASSIUM 4.7 mEq/L (3.5-5.1)
[2024-01-14] MEDS: PSYLLIUM SEED PACKET PO PRN (17:22)
[2024-01-14] MEDS: BISACODYL 5MG TABLET PO PRN (17:22)
[2024-01-15] VITALS (7 sets, daily range): BP systolic 99–125; BP diastolic 43–90; PULSE 67–116; RESP 18–22; TEMP 36.61404–37.16964; O2SAT 95–98
[2024-01-15 06:31] LABS: BASOPHILS % 0.5 % (0.0-2.0); CHLORIDE 106 mEq/L (98-107); EOSINOPHILS % 0.8 % (0.0-5.0); HEMATOCRIT. 25.1 % (42.0-52.0); HEMOGLOBIN. 8.4 g/dL (14.0-18.0); LYMPHOCYTES % 18.9 % (20.0-50.0); MEAN CORPUSCULAR HGB CONC 33.6 g/dL (31.0-37.0); MEAN CORPUSCULAR VOLUME 95.2 fL (80.0-94.0); MEAN PLATELET VOLUME 8.4 fl (7.4-10.4); NEUTROPHILS % 73.8 % (40.0-76.0); PLATELET 276 x1000/uL (130-400); POTASSIUM 5.2 mEq/L (3.5-5.1); RED BLOOD CELL COUNT 2.64 mill/uL (4.7-6.1); RED CELL DISTRIBUTION WIDTH 17.3 % (11.6-14.6); SODIUM 136 mEq/L (136-145); WHITE BLOOD COUNT 10.1 x1000/uL (4.5-11.0)
[2024-01-15 06:32] LABS: CARBON DIOXIDE 24 mEq/L (21-32)
[2024-01-15 06:33] LABS: CALCIUM 8.9 mg/dL (8.7-10.4)
[2024-01-15 06:37] LABS: CREATININE 1.3 mg/dL (0.6-1.3); GLUCOSE 107 mg/dL (70-105); UREA NITROGEN BLOOD 18 mg/dL (9-23)
[2024-01-15] MEDS: APIXABAN 5 MG TABLET PO SCH (21:34)
[2024-01-16] VITALS: BP 120/66; PULSE 113; RESP 24; TEMP 36.83628; O2SAT 97
[2024-01-16 04:00] VITALS: BP 103/62; PULSE 105; RESP 25; TEMP 37.11408; O2SAT 96
[2024-01-16 08:00] VITALS: BP 128/59; PULSE 92; RESP 24; TEMP 37.00296; O2SAT 98
[2024-01-16] MEDS: ACETAMINOPHEN 325MG TABLET PO PRN (08:51)
[2024-01-16] MEDS ORDERED: APIX5TAB PO (10:46)
[2024-01-16] MEDS ORDERED: AMI2 PO (10:46)
[2024-01-16 12:00] VITALS: BP 106/73; PULSE 62; RESP 19; TEMP 36.9474; O2SAT 97
[2024-01-16 16:00] VITALS: BP 118/62; PULSE 93; RESP 20; TEMP 36.83628; O2SAT 98
[2024-01-16] MEDS: METFORMIN HCL 500MG TABLET PO SCH (17:35)
[2024-01-16 20:00] VITALS: BP 135/80; PULSE 113; RESP 25; TEMP 37.16964; O2SAT 100
[2024-01-17 00:25] VITALS: BP 97/61; PULSE 86; RESP 20; TEMP 36.78072; O2SAT 98
[2024-01-17 04:00] VITALS: BP 108/71; PULSE 72; RESP 18; TEMP 37.00296; O2SAT 98
[2024-01-17 08:00] VITALS: BP 136/77; PULSE 81; RESP 22; TEMP 37.05852; O2SAT 98
[2024-01-17 12:00] VITALS: BP 130/70; PULSE 84; RESP 20; TEMP 36.9474; TEMP 36.94740; O2SAT 98
[2024-01-17] MEDS: MULTIVITAMINS,THER W-MINERALS TABLET PO SCH (12:42)
[2024-01-17 14:23] VITALS: BP 130/76; PULSE 78; TEMP 98.2; O2SAT 97
[2024-01-17] MEDS ORDERED: APIX5TAB PO (14:48)
[2024-01-17] MEDS ORDERED: ATOR40TA70 PO (14:48)
[2024-01-17] MEDS ORDERED: AMI2 PO (14:48)
[2024-01-17] MEDS ORDERED: HYDR-4001 MT (14:50)
== END 2024-01-17 15:26 | disposition home health service (06) | DRG 233 ==
LOC: ER 00:59 → 5EST 02:39 → EDBEDREQTM 02:47 → EDBEDREQ 02:47 → CVICU 01-02 18:00 → 3WST 01-14 22:15
PROVIDERS: ADMIT Internal Medicine; ATTEND Internal Medicine
PROC: 5A09357 Assistance with Respiratory Ventilation, Less than 24 Consecutive Hours, Continuous Positive Airway Pressure (ICD-10-PCS; 2024-01-01)
PROC: 4A023N7 Measurement of Cardiac Sampling and Pressure, Left Heart, Percutaneous Approach (ICD-10-PCS; 2024-01-02)
PROC: B211YZZ Fluoroscopy of Multiple Coronary Arteries using Other Contrast (ICD-10-PCS; 2024-01-02)
PROC: B41FYZZ Fluoroscopy of Right Lower Extremity Arteries using Other Contrast (ICD-10-PCS; 2024-01-02)
PROC: 02100Z9 Bypass Coronary Artery, One Artery from Left Internal Mammary, Open Approach (ICD-10-PCS; principal; 2024-01-07)
PROC: 021109W Bypass Coronary Artery, Two Arteries from Aorta with Autologous Venous Tissue, Open Approach (ICD-10-PCS; 2024-01-07)
PROC: 06BP4ZZ Excision of Right Saphenous Vein, Percutaneous Endoscopic Approach (ICD-10-PCS; 2024-01-07)
PROC: 04HY32Z Insertion of Monitoring Device into Lower Artery, Percutaneous Approach (ICD-10-PCS; 2024-01-07)
PROC: B24BZZ4 Ultrasonography of Heart with Aorta, Transesophageal (ICD-10-PCS; 2024-01-07)
PROC: 30233K1 Transfusion of Nonautologous Frozen Plasma into Peripheral Vein, Percutaneous Approach (ICD-10-PCS; 2024-01-07)
PROC: 30233N1 Transfusion of Nonautologous Red Blood Cells into Peripheral Vein, Percutaneous Approach (ICD-10-PCS; 2024-01-07)
PROC: 30233R1 Transfusion of Nonautologous Platelets into Peripheral Vein, Percutaneous Approach (ICD-10-PCS; 2024-01-07)
PROC: 30233M1 Transfusion of Nonautologous Plasma Cryoprecipitate into Peripheral Vein, Percutaneous Approach (ICD-10-PCS; 2024-01-07)
PROC: 5A1945Z Respiratory Ventilation, 24-96 Consecutive Hours (ICD-10-PCS; 2024-01-07)
PROC: 0BH17EZ Insertion of Endotracheal Airway into Trachea, Via Natural or Artificial Opening (ICD-10-PCS; 2024-01-07)
PROC: 0JH606Z Insertion of Pacemaker, Dual Chamber into Chest Subcutaneous Tissue and Fascia, Open Approach (ICD-10-PCS; 2024-01-13)
PROC: 02H63JZ Insertion of Pacemaker Lead into Right Atrium, Percutaneous Approach (ICD-10-PCS; 2024-01-13)
PROC: 02HK3JZ Insertion of Pacemaker Lead into Right Ventricle, Percutaneous Approach (ICD-10-PCS; 2024-01-13)
DX: I21.4 Non-ST elevation (NSTEMI) myocardial infarction (principal); A41.9 Sepsis, unspecified organism; I50.23 Acute on chronic systolic (congestive) heart failure; J96.02 Acute respiratory failure with hypercapnia; J96.01 Acute respiratory failure with hypoxia; N17.9 Acute kidney failure, unspecified; N39.0 Urinary tract infection, site not specified; I13.0 Hypertensive heart and chronic kidney disease with heart failure and stage 1 through stage 4 chronic kidney disease, or unspecified chronic kidney disease; I42.9 Cardiomyopathy, unspecified; I45.2 Bifascicular block; E87.29 Other acidosis; I48.92 Unspecified atrial flutter; B19.10 Unspecified viral hepatitis B without hepatic coma; J44.1 Chronic obstructive pulmonary disease with (acute) exacerbation; A59.9 Trichomoniasis, unspecified; Z20.822 Contact with and (suspected) exposure to COVID-19; D64.9 Anemia, unspecified; E11.51 Type 2 diabetes mellitus with diabetic peripheral angiopathy without gangrene; N18.9 Chronic kidney disease, unspecified; I49.5 Sick sinus syndrome; I27.20 Pulmonary hypertension, unspecified; I25.10 Atherosclerotic heart disease of native coronary artery without angina pectoris; J43.9 Emphysema, unspecified; I65.21 Occlusion and stenosis of right carotid artery; R53.81 Other malaise; R26.9 Unspecified abnormalities of gait and mobility; I48.91 Unspecified atrial fibrillation; E11.22 Type 2 diabetes mellitus with diabetic chronic kidney disease; E78.00 Pure hypercholesterolemia, unspecified; F12.90 Cannabis use, unspecified, uncomplicated; F17.210 Nicotine dependence, cigarettes, uncomplicated; Z79.01 Long term (current) use of anticoagulants; Z79.82 Long term (current) use of aspirin; Z79.899 Other long term (current) drug therapy; Z82.49 Family history of ischemic heart disease and other diseases of the circulatory system
CPT/HCPCS: 33208; 36415; 36600; 71045; 71250; 75820; 80048; 80053; 80305; 80320; 81003; 82375; 82550; 82553; 82803; 82805; 82962; 83036; 83605; 83735; 83880; 84100; 84132; 84478; 84484; 85025; 85347; 85384; 86705; 86850; 86900; 86920; 86927; 87070; 87340; 87426; 93005; 93306; 93458; 93880; 93923; 93970; 94003; 94010; 94618; 94640; 94660; 97110; 97116; 97162; 97164; 97166; 97168; 97530; 97535; 99285; A4565; C1725; C1729; C1751; C1758; C1769; C1785; C1887; C1893; C1898; J0282; J0461; J0610; J0690; J0696; J1580; J1644; J1650; J1815; J1940; J2250; J2260; J2270; J2405; J2470; J2704; J2720; J2765; J2919; J3010; J3430; J3475; J3480; J3490; J7050; J7060; J7120; L1830; L3908; P9012; P9016; P9017; P9034; P9041; P9047; Q9967; G0480; J0131

== ENCOUNTER 2024-02-23 12:16 | Emergency (ER) | payer MEDICARE, MEDICAID ==
[~2024-02-23] VITALS: Ht 193 cm; Wt 121.0 kg
[~2024-02-23 12:16] MED LIST changes: +AMI2 PO; +APIX5TAB PO; -CILO100T3 PO; -DICL100G16 TP; +HYDR-4001 MT
[2024-02-23 12:18] VITALS: O2SAT 100
[2024-02-23 12:32] VITALS: BP 121/67; PULSE 105; RESP 18; TEMP 97.8; O2SAT 96
[2024-02-23 13:05] LABS: BASOPHILS % 1.2 % (0.0-2.0); EOSINOPHILS % 2.3 % (0.0-5.0); HEMATOCRIT. 28.3 % (42.0-52.0); HEMOGLOBIN. 9.2 g/dL (14.0-18.0); LYMPHOCYTES % 16.9 % (20.0-50.0); MEAN CORPUSCULAR HEMOGLOBIN 31.3 pg (28.0-32.0); MEAN CORPUSCULAR HGB CONC 32.6 g/dL (31.0-37.0); MEAN PLATELET VOLUME 7.7 fl (7.4-10.4); NEUTROPHILS % 73.6 % (40.0-76.0); PLATELET 229 x1000/uL (130-400); RED BLOOD CELL COUNT 2.95 mill/uL (4.7-6.1); RED CELL DISTRIBUTION WIDTH 20.2 % (11.6-14.6); WHITE BLOOD COUNT 6.8 x1000/uL (4.5-11.0)
[2024-02-23 13:10] LABS: CHLORIDE 111 mEq/L (98-107); POTASSIUM 4.2 mEq/L (3.5-5.1); SODIUM 144 mEq/L (136-145)
[2024-02-23 13:11] LABS: CALCIUM 9.1 mg/dL (8.7-10.4); CARBON DIOXIDE 26 mEq/L (21-32)
[2024-02-23 13:16] LABS: CREATININE 1.4 mg/dL (0.6-1.3); GLUCOSE 101 mg/dL (70-105); UREA NITROGEN BLOOD 15 mg/dL (9-23)
[2024-02-23 14:41] LABS: TROPONIN I HIGH SENSITIVITY 123 ng/L (3.0-53)
== END 2024-02-23 18:05 | disposition left against medical advice (07) ==
LOC: ER 12:16 → EDBEDREQ 15:19 → EDBEDREQTM 15:19 → ER 18:05
DX: R60.0 Localized edema (principal); E11.9 Type 2 diabetes mellitus without complications; E78.00 Pure hypercholesterolemia, unspecified; D64.9 Anemia, unspecified; Z79.899 Other long term (current) drug therapy; Z98.890 Other specified postprocedural states
CPT/HCPCS: 36415; 71045; 80048; 83880; 84484; 85025; 93005; 99284

== ENCOUNTER 2024-09-05 04:14 | Inpatient (IN) | payer MEDICARE, MEDICAID ==
[2024-09-05] VITALS (48 sets, daily range): BP systolic 91–136; BP diastolic 61–98; PULSE 63–121; RESP 0–33; TEMP 36.4–36.9; O2SAT 95–100
[~2024-09-05] VITALS: Ht 188 cm; Wt 114.8 kg
[~2024-09-05 04:14] MED LIST changes: -AMLO5TAB4 PO; +AMLO5TAB5 PO; +FURO-151 MT; -HYDR-4001 MT
[2024-09-05] MEDS ORDERED: MIDAZOLAM HCL 100 MG in DEXT 5% WATER 80 ML IV STA (04:31)
[2024-09-05] MEDS: IPRATROPIUM BROMIDE (0.02%) 0.5MG/2.5ML NEB HHN STA (04:31)
[2024-09-05] MEDS: ROCURONIUM BROMIDE 10MG/ML VIAL 5ML IV ONE (04:45)
[2024-09-05] MEDS: ETOMIDATE 2MG/ML 10ML VIAL IV ONE (04:45)
[2024-09-05] MEDS: FUROSEMIDE 40MG/4ML VIAL IV ONE (04:47)
[2024-09-05] MEDS: METHYLPREDNISOLONE SOD SUCC 125MG/2ML (ACT-O-VIAL) IV STA (04:47)
[2024-09-05] MEDS: ONDANSETRON HCL 4MG/2ML INJ IV STA (04:47)
[2024-09-05] MEDS: MAGNESIUM 2 G PREMIX 50 ML IV ONE (04:48)
[2024-09-05] MEDS: MORPHINE SULFATE 4 MG/ML INJ (FOR IV/IM USE) IV STA (04:48)
[2024-09-05] MEDS: PROPOFOL 10MG/ML 100ML 100 ML IV ONE (04:49)
[2024-09-05 05:00] LABS: EOSINOPHILS % 2.7 % (0.0-5.0); HEMATOCRIT. 36.1 % (42.0-52.0); HEMOGLOBIN. 11.6 g/dL (14.0-18.0); LYMPHOCYTES % 22.2 % (20.0-50.0); MEAN CORPUSCULAR HEMOGLOBIN 29.8 pg (28.0-32.0); MEAN CORPUSCULAR VOLUME 92.9 fL (80.0-94.0); MEAN PLATELET VOLUME 8.9 fl (7.4-10.4); MONOCYTES % 2.6 % (2.0-8.0); NEUTROPHILS % 71.5 % (40.0-76.0); PLATELET 198 x1000/uL (130-400); RED BLOOD CELL COUNT 3.88 mill/uL (4.7-6.1); RED CELL DISTRIBUTION WIDTH 18.6 % (11.6-14.6); WHITE BLOOD COUNT 9.7 x1000/uL (4.5-11.0)
[2024-09-05] MEDS: ALBUTEROL (0.083%) 2.5MG/3ML NEB HHN SCH ×2 (05:00→15:24)
[2024-09-05 05:09] LABS: CHLORIDE 106 mEq/L (98-107); SODIUM 140 mEq/L (136-145)
[2024-09-05 05:10] LABS: CALCIUM 8.7 mg/dL (8.7-10.4); CARBON DIOXIDE 22 mEq/L (21-32)
[2024-09-05 05:15] LABS: CREATININE 1.8 mg/dL (0.6-1.3); GLUCOSE 215 mg/dL (70-105); UREA NITROGEN BLOOD 21 mg/dL (9-23)
[2024-09-05 05:27] LABS: D-DIMER 5.68 mg/L FEU (<0.50); INR 1.1; PROTHROMBIN TIME 11.9 sec (9.6-11.0)
[2024-09-05 05:47] LABS: LACTIC ACID 3.3 mmol/L (0.4-2.0)
[2024-09-05 05:48] LABS: TROPONIN I HIGH SENSITIVITY 108 ng/L (3.0-53)
[2024-09-05 06:09] LABS: BG BASE EXCESS -4.5 mmol/L (-2.0-3.0); BG CARBOXYHEMOGLOBIN 2.5 % (0.5-1.5); BG DEOXYHEMOGLOBIN 2.4 % (0.0-5.0); BG HCO3 ACT 24.3 mmol/L (21.0-28.0); BG METHEMOGLOBIN 0.2 % (0.5-1.5); BG OXYGEN SATURATION 97.5 % (94.0-98.0); BG OXYHEMOGLOBIN 94.9 % (94.0-98.0); BG PCO2 62.7 mmHg (35.0-48.0); BG PH 7.207 (7.350-7.450); BG PO2 107.3 mmHg (83.0-108.0); BG TOTAL HEMOGLOBIN 12.6 g/dL (13.5-17.5)
[2024-09-05] MEDS: MIDAZOLAM 100MG/100ML PREMIX IV PRN (06:59)
[2024-09-05 08:52] LABS: TROPONIN I HIGH SENSITIVITY 94 ng/L (3.0-53)
[2024-09-05] MEDS ORDERED: DEXTROSE 50% WATER 50ML SYRINGE IV PRN ×2 (10:00→10:45)
[2024-09-05] MEDS: IPRATROPIUM BROMIDE (0.02%) 0.5MG/2.5ML NEB HHN NR (10:05)
[2024-09-05 10:40] LABS: TROPONIN I HIGH SENSITIVITY 93 ng/L (3.0-53)
[2024-09-05] MEDS ORDERED: DIPHENHYDRAMINE 50MG/ML VIAL IV PRN (10:45)
[2024-09-05] MEDS ORDERED: ONDANSETRON HCL 4MG/2ML INJ IV PRN (10:45)
[2024-09-05] MEDS ORDERED: ACETAMINOPHEN 650MG/20.3ML UDC GT PRN ×2 (10:45)
[2024-09-05 11:38] LABS: LDL CHOLESTEROL 89 mg/dL (5-100); TRIGLYCERIDE 57 mg/dL (0-150)
[2024-09-05 11:39] LABS: ALANINE AMINOTRANSFERASE 28 IU/L (10-49); ALBUMIN 4.4 g/dL (3.2-4.8); ASPARTATE AMINOTRANSFERASE 45 IU/L (<34); BILIRUBIN DIRECT 0.2 mg/dL (<=3.0); CHOLESTEROL 138 mg/dL (<200); HDL CHOLESTEROL 40 mg/dL (>55)
[2024-09-05 11:40] LABS: BILIRUBIN TOTAL 0.6 mg/dL (0.1-1.0); PHOSPHORUS 4.5 mg/dL (2.5-4.9); PROTEIN TOTAL 8.1 g/dL (6.0-8.3)
[2024-09-05 11:43] LABS: THYROID STIMULATING HORMONE 3.83 uIU/mL (0.55-4.78)
[2024-09-05] MEDS: IPRATROPIUM/ALBUTEROL 0.5-3(2.5)MG/3ML NEB HHN SCH (12:30)
[2024-09-05] MEDS ORDERED: DILTIAZEM HCL 125 MG in DEXT 5% WATER 100 ML IV PRN (12:45)
[2024-09-05] MEDS: DILTIAZEM HCL 5MG/ML 5ML VIAL IV NR (12:52)
[2024-09-05] MEDS: DILTIAZEM HCL 125 MG in DEXT 5% WATER 100 ML IV PRN (12:52)
[2024-09-05] MEDS ORDERED: BLOOD SUGAR DIAGNOSTIC STRIP TEST SCH ×2 (13:00)
[2024-09-05] MEDS ORDERED: INSULIN LISPRO 100 UNITS/ML SUBCUT SCH ×2 (13:09→13:20)
[2024-09-05] MEDS: SODIUM CHLORIDE 0.9% 3ML FLUSH IVF SCH (14:16)
[2024-09-05 14:36] LABS: BG BASE EXCESS -2.6 mmol/L (-2.0-3.0); BG CARBOXYHEMOGLOBIN 0.8 % (0.5-1.5); BG DEOXYHEMOGLOBIN 1.6 % (0.0-5.0); BG FRACTION INSPIRED OXYGEN 80; BG HCO3 ACT 24.1 mmol/L (21.0-28.0); BG OXYGEN SATURATION 98.4 % (94.0-98.0); BG OXYHEMOGLOBIN 97.6 % (94.0-98.0); BG PCO2 49.5 mmHg (35.0-48.0); BG PH 7.305 (7.350-7.450); BG PO2 119.8 mmHg (83.0-108.0); BG SAMPLE SITE RIGHT RADIAL; BG TOTAL HEMOGLOBIN 12.3 g/dL (13.5-17.5); BG VENT MODE VENT - AC
[2024-09-05] MEDS: AMIODARONE HCL 900 MG in DEXT 5% WATER 482 ML IV SCH (14:47)
[2024-09-05] MEDS: AMIODARONE 150MG/100ML D5W 100 ML IV SCH (14:47)
[2024-09-05] MEDS: METHYLPREDNISOLONE SOD SUCC 40MG/ML (ACT-O-VIAL) IV SCH (15:24)
[2024-09-05 15:28] LABS: CLARITY URINE CLEAR (CLEAR); COLOR URINE YELLOW (YELLOW); GLUCOSE URINE NEGATIVE (NEGATIVE); KETONES URINE NEGATIVE (NEGATIVE); LEUKOCYTE ESTERASE URINE NEGATIVE (NEGATIVE); NITRITE URINE NEGATIVE (NEGATIVE); OCCULT BLOOD URINE 2+ (NEGATIVE); PROTEIN URINE TRACE (NEGATIVE); SPECIFIC GRAVITY URINE 1.018 (1.005-1.030); UROBILINOGEN URINE 0.2 E.U./dL (0.2-1.0)
[2024-09-05 15:53] LABS: *AMPHETAMINES SCREEN URINE NEGATIVE (NEGATIVE); *BARBITURATES SCREEN URINE NEGATIVE (NEGATIVE); *BENZODIAZEPINES SCREEN URINE PRESUMPTIVE POSITIVE (NEGATIVE); *COCAINE SCREEN URINE NEGATIVE (NEGATIVE); CANNABINOID URINE SCREEN NEGATIVE (NEGATIVE); ECSTASY MDMA SCREEN URINE NEGATIVE (NEGATIVE); METHADONE URINE SCREEN NEGATIVE (NEGATIVE); OPIATES URINE SCREEN PRESUMPTIVE POSITIVE (NEGATIVE); PHENCYCLIDINE URINE SCREEN NEGATIVE (NEGATIVE)
[2024-09-05 16:35] LABS: BACTERIA URINE NONE SEEN; SQUAMOUS EPITHELIAL CELL URINE FEW /lpf (RARE/1+); WBC URINE NONE SEEN /hpf (0-2)
[2024-09-05] MEDS: INSULIN LISPRO 100 UNITS/ML SUBCUT SCH (18:00)
[2024-09-05] MEDS: BLOOD SUGAR DIAGNOSTIC STRIP TEST SCH (18:01)
[2024-09-06] VITALS (99 sets, daily range): BP systolic 95–161; BP diastolic 58–132; PULSE 64–184; RESP 0–31; TEMP 36.1–37.2; O2SAT 97–100
[2024-09-06] MEDS ORDERED: ADENOSINE 3 MG/ML 2ML VIAL IV SCH ×2 (01:00→01:15)
[2024-09-06] MEDS: AMIODARONE 150MG/100ML D5W 100 ML IV SCH (01:10)
[2024-09-06 03:43] LABS: CHLORIDE 105 mEq/L (98-107); POTASSIUM 5.1 mEq/L (3.5-5.1); SODIUM 139 mEq/L (136-145)
[2024-09-06 03:44] LABS: CALCIUM 8.5 mg/dL (8.7-10.4); CARBON DIOXIDE 24 mEq/L (21-32)
[2024-09-06 03:49] LABS: CREATININE 1.6 mg/dL (0.6-1.3); GLUCOSE 162 mg/dL (70-105); UREA NITROGEN BLOOD 29 mg/dL (9-23)
[2024-09-06] MEDS: MIDAZOLAM 100MG/100ML PMX 100 ML IV PRN (08:42)
[2024-09-06] MEDS: PANTOPRAZOLE SODIUM 40 MG/VIAL IV SCH (08:49)
[2024-09-06] MEDS ORDERED: ENOXAPARIN 120MG/0.8ML SYR SUBCUT SCH ×2 (09:00→09:30)
[2024-09-06 09:33] LABS: BG BASE EXCESS -4.3 mmol/L (-2.0-3.0); BG CARBOXYHEMOGLOBIN 1.3 % (0.5-1.5); BG DEOXYHEMOGLOBIN 4.6 % (0.0-5.0); BG FRACTION INSPIRED OXYGEN 40; BG HCO3 ACT 21.3 mmol/L (21.0-28.0); BG METHEMOGLOBIN 0.3 % (0.5-1.5); BG OXYGEN SATURATION 95.3 % (94.0-98.0); BG OXYHEMOGLOBIN 93.8 % (94.0-98.0); BG PCO2 41.1 mmHg (35.0-48.0); BG PH 7.333 (7.350-7.450); BG PO2 79.3 mmHg (83.0-108.0); BG SAMPLE SITE RIGHT RADIAL; BG TOTAL HEMOGLOBIN 12.5 g/dL (13.5-17.5); BG VENT MODE VENT - AC
[2024-09-06] MEDS: ENOXAPARIN 120MG/0.8ML SYR SUBCUT SCH (10:42)
[2024-09-06] MEDS: AMIODARONE 200MG TABLET NG SCH (14:57)
[2024-09-06 15:53] LABS: HEMATOCRIT. 35.7 % (42.0-52.0); HEMOGLOBIN. 11.5 g/dL (14.0-18.0); MEAN CORPUSCULAR HEMOGLOBIN 30.6 pg (28.0-32.0); MEAN CORPUSCULAR HGB CONC 32.2 g/dL (31.0-37.0); MEAN PLATELET VOLUME 9.1 fl (7.4-10.4); PLATELET 149 x1000/uL (130-400); RED BLOOD CELL COUNT 3.76 mill/uL (4.7-6.1); RED CELL DISTRIBUTION WIDTH 18.7 % (11.6-14.6); WHITE BLOOD COUNT 10.4 x1000/uL (4.5-11.0)
[2024-09-06 15:55] LABS: DIFFERENTIAL COMMENT 1
[2024-09-06 15:58] LABS: CHLORIDE 104 mEq/L (98-107); POTASSIUM 5.2 mEq/L (3.5-5.1)
[2024-09-06 15:59] LABS: SODIUM 137 mEq/L (136-145)
[2024-09-06 16:00] LABS: CALCIUM 8.8 mg/dL (8.7-10.4); CARBON DIOXIDE 24 mEq/L (21-32)
[2024-09-06 16:04] LABS: CREATININE 1.4 mg/dL (0.6-1.3); GLUCOSE 138 mg/dL (70-105)
[2024-09-06 16:05] LABS: UREA NITROGEN BLOOD 25 mg/dL (9-23)
[2024-09-06 16:08] LABS: ANISOCYTOSIS 1+; GIANT PLATELETS 1+; PLATELET ESTIMATE 1
[2024-09-06] MEDS: FUROSEMIDE 100MG/10ML VIAL IVP NR (19:38)
[2024-09-07] VITALS (103 sets, daily range): BP systolic 96–156; BP diastolic 52–105; PULSE 62–114; RESP 10–29; TEMP 36.6–36.8; O2SAT 94–100
[2024-09-07] MEDS ORDERED: AZITHROMYCIN 500MG/250ML 250 ML IV SCH (06:15)
[2024-09-07 08:48] LABS: HEMATOCRIT. 34.2 % (42.0-52.0); HEMOGLOBIN. 11.2 g/dL (14.0-18.0); MEAN CORPUSCULAR HGB CONC 32.8 g/dL (31.0-37.0); MEAN CORPUSCULAR VOLUME 91.4 fL (80.0-94.0); PLATELET 182 x1000/uL (130-400); RED BLOOD CELL COUNT 3.74 mill/uL (4.7-6.1); RED CELL DISTRIBUTION WIDTH 18.4 % (11.6-14.6); WHITE BLOOD COUNT 9.6 x1000/uL (4.5-11.0)
[2024-09-07 08:49] LABS: POTASSIUM 4.6 mEq/L (3.5-5.1)
[2024-09-07 08:50] LABS: CALCIUM 8.8 mg/dL (8.7-10.4)
[2024-09-07 08:53] LABS: DIFFERENTIAL COMMENT 1
[2024-09-07 08:55] LABS: CREATININE 1.5 mg/dL (0.6-1.3)
[2024-09-07 09:50] LABS: ANISOCYTOSIS 2+; PLATELET ESTIMATE NORMAL
[2024-09-07] MEDS ORDERED: ACETAMINOPHEN 650MG/20.3ML UDC NG PRN ×2 (14:01)
[2024-09-07] MEDS: FUROSEMIDE 40MG/4ML VIAL IVP SCH (17:55)
[2024-09-08] VITALS (60 sets, daily range): BP systolic 104–143; BP diastolic 61–125; PULSE 76–106; RESP 11–26; TEMP 36.3–37.1; O2SAT 98–100
[2024-09-08 05:56] LABS: HEMATOCRIT. 36.3 % (42.0-52.0); HEMOGLOBIN. 11.7 g/dL (14.0-18.0); MEAN CORPUSCULAR HEMOGLOBIN 29.6 pg (28.0-32.0); MEAN CORPUSCULAR HGB CONC 32.4 g/dL (31.0-37.0); MEAN CORPUSCULAR VOLUME 91.5 fL (80.0-94.0); MEAN PLATELET VOLUME 9.4 fl (7.4-10.4); PLATELET 228 x1000/uL (130-400); RED BLOOD CELL COUNT 3.96 mill/uL (4.7-6.1); RED CELL DISTRIBUTION WIDTH 18.4 % (11.6-14.6); WHITE BLOOD COUNT 15.1 x1000/uL (4.5-11.0)
[2024-09-08 06:09] LABS: POTASSIUM 4.3 mEq/L (3.5-5.1)
[2024-09-08 06:10] LABS: CALCIUM 9.1 mg/dL (8.7-10.4)
[2024-09-08 06:15] LABS: CREATININE 1.8 mg/dL (0.6-1.3)
[2024-09-08 06:19] LABS: DIFFERENTIAL COMMENT 1
[2024-09-08] MEDS ORDERED: FUROSEMIDE 40MG/4ML VIAL IVP SCH (09:00)
[2024-09-08 12:11] LABS: ANISOCYTOSIS 2+; HYPOCHROMASIA 2+; PLATELET ESTIMATE NORMAL
[2024-09-08 12:12] LABS: GIANT PLATELETS FEW
[2024-09-08] MEDS: METHYLPREDNISOLONE SOD SUCC 125MG/2ML (ACT-O-VIAL) IV SCH (13:15)
[2024-09-08] MEDS: TRIAMCINOLONE ACETONIDE 0.1 % OINT 15GM TOP SCH (22:25)
[2024-09-09] VITALS (53 sets, daily range): BP systolic 102–166; BP diastolic 58–105; PULSE 60–106; RESP 10–23; TEMP 36.4–37.2; O2SAT 95–100
[2024-09-09] MEDS: FUROSEMIDE 40MG TABLET PO SCH (09:08)
[2024-09-10] VITALS (8 sets, daily range): BP systolic 107–143; BP diastolic 59–86; PULSE 65–101; RESP 18–22; TEMP 36.3–36.7; O2SAT 87–100
[2024-09-10 14:15] LABS: CALCIUM 8.8 mg/dL (8.7-10.4)
[2024-09-10 14:20] LABS: CREATININE 1.5 mg/dL (0.6-1.3)
[2024-09-10] MEDS: TRIAMCINOLONE ACETONIDE 0.1% CREAM 15GM TOP SCH (22:31)
[2024-09-11] VITALS: BP 105/60; PULSE 97; RESP 18; TEMP 36.4; O2SAT 97
[2024-09-11 04:00] VITALS: BP 148/91; PULSE 60; RESP 18; TEMP 36.3; O2SAT 95
[2024-09-11 08:00] VITALS: BP 94/68; PULSE 94; RESP 15; TEMP 36.7; O2SAT 96
[2024-09-11] MEDS: METOPROLOL SUCCINATE 50MG ER TABLET PO SCH (08:31)
[2024-09-11 12:00] VITALS: BP 98/68; PULSE 96; RESP 16; TEMP 36.6; O2SAT 96
[2024-09-11 16:00] VITALS: BP 96/68; PULSE 96; RESP 15; TEMP 36.7; O2SAT 96
[2024-09-11 16:32] VITALS: BP 98/68; PULSE 94; TEMP 99; O2SAT 95
== END 2024-09-11 16:55 | disposition home or self-care (01) | DRG 870 ==
LOC: ER 04:14 → ENRESERV 12:31 → MICUSO 13:09 → 5WST 09-09 21:55
PROVIDERS: ADMIT Internal Medicine; ATTEND Internal Medicine
PROC: 5A1955Z Respiratory Ventilation, Greater than 96 Consecutive Hours (ICD-10-PCS; principal; 2024-09-05)
PROC: 5A09357 Assistance with Respiratory Ventilation, Less than 24 Consecutive Hours, Continuous Positive Airway Pressure (ICD-10-PCS; 2024-09-05)
PROC: 0BH17EZ Insertion of Endotracheal Airway into Trachea, Via Natural or Artificial Opening (ICD-10-PCS; 2024-09-05)
DX: A41.9 Sepsis, unspecified organism (principal); I50.43 Acute on chronic combined systolic (congestive) and diastolic (congestive) heart failure; J96.01 Acute respiratory failure with hypoxia; J18.9 Pneumonia, unspecified organism; N17.9 Acute kidney failure, unspecified; I48.92 Unspecified atrial flutter; I47.10 Supraventricular tachycardia, unspecified; I48.20 Chronic atrial fibrillation, unspecified; E87.29 Other acidosis; G93.40 Encephalopathy, unspecified; E11.9 Type 2 diabetes mellitus without complications; I11.0 Hypertensive heart disease with heart failure; D53.9 Nutritional anemia, unspecified; I25.10 Atherosclerotic heart disease of native coronary artery without angina pectoris; R65.20 Severe sepsis without septic shock; I44.7 Left bundle-branch block, unspecified; J44.9 Chronic obstructive pulmonary disease, unspecified; E78.00 Pure hypercholesterolemia, unspecified; E86.0 Dehydration; J98.2 Interstitial emphysema; I49.5 Sick sinus syndrome; Z95.1 Presence of aortocoronary bypass graft; I25.2 Old myocardial infarction; Z95.0 Presence of cardiac pacemaker; Z87.891 Personal history of nicotine dependence; Z79.82 Long term (current) use of aspirin; Z79.899 Other long term (current) drug therapy; Z79.01 Long term (current) use of anticoagulants; Z91.199 Patient's noncompliance with other medical treatment and regimen due to unspecified reason
CPT/HCPCS: 31500; 31720; 36415; 36600; 71045; 78580; 80048; 80061; 80076; 80305; 81003; 82375; 82805; 82962; 83036; 83605; 83735; 83880; 84100; 84145; 84443; 84484; 85025; 85379; 87070; 93005; 93306; 93970; 94002; 94003; 94070; 94640; 94664; 94760; 97162; 97166; 97530; 98960; A4606; J0153; J0282; J1650; J1815; J1940; J2250; J2270; J2405; J2470; J2704; J2919; J3475; J3490; J7060